=== PATIENT | male | born 1950 | race Caucasian/White ===

== ENCOUNTER 2020-11-08 12:51 | Outpatient (CLI) | payer MEDICARE, OTHER, SELFPAY ==
--- NOTE | 2020-11-08 13:03 | XR_ITS ---
WS: [id number] Chest 2 views, 11/08/2020 Clinical Data: COPD Comparison: PA and lateral chest, 01/12/2019. Findings: No nodules, masses or effusions are seen. The heart is normal. The pulmonary vascularity is not increased. No pneumonia or pneumothorax is seen. The diaphragms are flattened. The aortic arch a nd descending aorta show tortuosity. XR/XR chest 2V* [id number] Impression: Atherosclerosis and hyperinflation.
== END 2020-11-08 12:52 | disposition home or self-care (01) ==
PROVIDERS: PCP Family Medicine; Visit Provider Family Medicine
DX: J44.1 Chronic obstructive pulmonary disease with (acute) exacerbation (principal); I70.90 Unspecified atherosclerosis
CPT/HCPCS: 71046

== ENCOUNTER → 2022-12-09 10:28 | Outpatient (BNVA) | payer MEDICARE, OTHER, SELFPAY | PROVIDERS: PCP Family Medicine; Visit Provider Dermatology | DX: L72.0 Epidermal cyst (principal); R20.8 Other disturbances of skin sensation; R23.8 Other skin changes; L53.8 Other specified erythematous conditions | CPT/HCPCS: 11403; 12032 ==

== ENCOUNTER 2023-03-17 13:18 | Outpatient (CLI) | payer MEDICARE, SELFPAY ==
--- NOTE | 2023-03-17 13:24 | CT_ITS ---
WS: [id number] LDCT LUNG CANCER SCREENING HISTORY: HX OF TOBACCO USE TECHNIQUE: Axial imaging performed from the apices to 1 cm below the costophrenic angles. Coronal and sagittal reformats are submitted with axial MIP series. All CT scans at [facility] use at least one of these dose optimization techniques: automated exposure control; mA and/or kV adjustment per patient size (includes targeted exams where dose is matched to clinical indication); or iterativ e reconstruction. DLP: 58.81 mGy.cm DIvol: Mean CTDIvol: 1.00 (mGy) COMPARISON: None available. Diagnostic quality: Satisfactory Lungs: Mild pulmonary hyperexpansion. No pulmonary mass or nodule. No endobronchial lesions. No groun dglass opacification. Heart: Normal size heart with no pericardial effusion.. Mild coronary artery calcifications. Other findings: Moderate atherosclerosis aorta. No mediastinal or hilar adenopathy. No chest wall abn ormality.. Mild thickening of the LEFT adrenal gland. IMPRESSION: CT/CT lung screening [id number] LUNG-RADS: 1-Negative FOLLOW UP: 12 Month: Continue annual screening with LDCT OTHER FINDINGS (S MODIFIER): None.
== END 2023-03-17 13:19 | disposition home or self-care (01) ==
PROVIDERS: PCP Family Medicine; Visit Provider Electrodiagnostic Medicine
DX: Z12.2 Encounter for screening for malignant neoplasm of respiratory organs (principal); Z87.891 Personal history of nicotine dependence
CPT/HCPCS: 71271

== ENCOUNTER → 2023-12-28 13:30 | Outpatient (BNVA) | payer MEDICARE, SELFPAY | PROVIDERS: PCP Family Medicine; Visit Provider Nurse Practitioner Family | DX: L57.0 Actinic keratosis (principal); L82.0 Inflamed seborrheic keratosis; B07.8 Other viral warts; D22.62 Melanocytic nevi of left upper limb, including shoulder; L81.4 Other melanin hyperpigmentation | CPT/HCPCS: 17000; 17110; 99213 ==

== ENCOUNTER 2024-02-19 19:40 | Inpatient (IN) | payer MEDICARE, OTHER, SELFPAY ==
[2024-02-19] VITALS (12 sets, daily range): BP systolic 116–162; BP diastolic 66–94; PULSE 69–103; RESP 14–33; TEMP 36.8–37; O2SAT 93–97; BMI 22.9; BMI 23.7
--- NOTE | 2024-02-19 19:41 | ECG_ITS ---
[facility] Test Date: 2024-02-19 Pat Name: Saqib Mace Department: Room: Gender: Male Advanced Nursing Professor: : 1950 Requested By: Brayna Camacho Order Number: [id number] Mor MD: Chirag Jay M.D. Measurements Intervals [place] Rate: 63 P: 53 CT: 183 QRS: 77 QRSD: 109 T: 89 QT: 403 QTc: 416 Interpretive Statements SINUS RHYTHM WITH OCCASIONAL SUPRAVENTRICULAR PREMATURE COMPLEXES MARKED ST ELEVATION, CONSIDER INFERIOR INJURY [MARKED ST ELEVATION W/O NORMALLY INFLECTED T-WAVE IN II/aVF] ACUTE SD No previous ECG available for comparison Electronically Signed On 02-21-2024 00:05:43 CDT by Chirag Jay M.D. [email or web address]
--- NOTE | 2024-02-19 19:43 | XRR_ITS ---
PROCEDURE INFORMATION: Exam: XR Chest Exam date and time: 02/19/2024 7:51 PM Age: 73 years old Clinical indication: Angina pectoris; Patient HX: Chest pain; Stemi TECHNIQUE: Imaging protocol: Radiologic exam of the chest. Views: 1 view. COMPARISON: CT lung screening [id number] 03/17/2023 1:38 PM FINDINGS: Lungs: Unremarkable. No consolidation. Pleural spaces: Unremarkable. No pleural effusion. No pneumothorax. Heart/Mediastinum: Unremarkable. No cardiomegaly. Bones/joints: Unremarkable. XR/XR chest 1V portable [id number] IMPRESSION: No acute findings.
--- NOTE | 2024-02-19 19:53 | XACV_ITS ---
Exam Room: 2 Ht: 178 cm Wt: 73 kg BSA: 1.89 m2 Gender: Male : 1950 Exam Priority: Routine Procedure(s): Procedure Description: Diagnostic procedure Procedure Description: PCI procedure Procedure Description: Left Heart Catheterization Procedure Description: Left ventriculography Procedure Description: Drug Eluting Coronary Stent Procedure Description: PTCA Procedure Description: Miscellaneous Procedure Description: ACT Procedure Description: Coronary Angiography Diagnostic Cath Status: Emergency Diagnostic Findings * Left Main has no disease. * Circumflex has no disease. * Mid Left Anterior Descending: mild 40% stenosis, MARK: 3 flow. * Mid Right Coronary Artery: total occlusion, MARK: 0 flow. * Distal Right Coronary Artery to Right Posterior AV: total occlusion, MARK: 0 flow. * Coronary angiography shows right dominance. PCI Status: Emergency PCI Indication: STEMI - Immediate PCI for STEMI Interventional Findings * Mid Right Coronary Artery: 100% stenosis treated with a AB TREK 2.50X15 RX BALLOON, ISAK MANZANO EUPHORA RX 3.13O50BH BALLOON, and MDT R CINTHIA 3.0X15 MARIANNA. 0% residual stenosis, MARK: 3 flow. * Distal Right Coronary Artery to Right Posterior AV: 100% stenosis treated with a Drug Eluting Stent. 0% residual stenosis, MARK: 3 flow. Successful intervention. Conclusions 1. There is total occlusion coronary artery disease with two vessel disease. 2. Mid Right Coronary Artery was treated with a Balloon, Balloon, and Drug Eluting Stent. 3. Distal Right Coronary Artery to Right Posterior AV was treated with a Drug Eluting Stent. 4. 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 Further assessment with CTA with runoff and abdominal pelvis CTA recommended.. 5. Please note that it was a difficult access for anatomical challenges. Patient does not have good radial pulse were not able to cross with a wire into the brachial artery therefore we will switch patient to the right groin. After somewhat difficulty were able to go through the common femoral artery of the right side however our wire keep on hanging in the distal abdominal aorta and was not crossing it, gentle injection revealed patient has large right common iliac eccentric aneurysm, we therefore switched to right brachial artery as patient came in with ST elevation ND hypotensive requiring urgent care, therefore we cannulated right brachial artery successfully, coronary angiography/PCI was performed through right brachial artery. Please note that they lay him to go to balloon time the second 2 anatomically challenge and difficulty in access.. Recommendations * 1-Return to inpatient for close monitoring and routine cath care 2-Risk factor modification for secondary prevention 3-Statin and aspirin 81 mg life-long, if tolerated 4-Patient was pre-loaded with 600 mg of Plavix, continue Plavix 75mg p.o. daily for at least one year. We will assess at the end of one year again to continue if further or not 5-Continue optimal medical management 6-Follow up with Dr. Juarez in four weeks and your primary care in 10 days. Interventional RX Recommendation: PCI w/o planned CABG Diagnostic RX Recommendation: PCI w/o planned CABG Ventriculography Ejection Fraction: 45.0 % Pressures Phase:Rest AO : 138 / 88 ( 109 ) @ 5:04:03 PM 29 / 25 ( 27 ) @ 5:04:03 PM 136 / 113 ( 124 ) @ 5:04:03 PM 75 / 52 ( 62 ) @ 5:04:03 PM 95 / 61 ( 77 ) @ 5:04:03 PM 121 / 73 ( 95 ) @ 5:04:03 PM 122 / 73 ( 95 ) @ 5:04:03 PM LV : 128 / 2 / 24 @ 5:04:03 PM 127 / 13 / 31 @ 5:04:03 PM 126 / 12 / 30 @ 5:04:03 PM Valves Phase:DefaultPhase AV : 6.0 @ 10:04:03 PM AV Mean Gradient: 9.0 @ 10:04:03 PM Clinical Evaluation EBL: 5mL-10mL Procedural Details Pre-Procedure Time Out. Identified patient by full name and date of as verbalized by the patient/guarantor. Does the consent match the physician's order: N/A Emergent; Informed Consent not obtained due to time critical life threat. Accurate & Complete Informed Consent: N/A Emergent; Informed Consent not obtained due to time critical life threat. Inpatient/Outpatient History & Physical on Chart: N/A Emergent; Informed Consent not obtained due to time critical life threat. Visualize and Verify Site with Patient/Guarantor: N/A. Relevant Radiology Images available: N/A. The risks, benefits, and alternatives of sedation and/or procedure were discussed by physician. The patient agrees to continue. Procedure started. [facility] Clinical Fraility Score: 3: Managing Well. Early Learning Teacher Indications: ACS <= 24 hours. Chest Pain Symptom Assessment: Typical Angina Symptoms. Correct patient, site and procedure confirmed by cath team. Current diagnosis: STEMI. PERRLA. Strong, equal hand kettle room helper bilaterally. Lungs clear x 5 lobes. IV Site on Arrival: 20 gauge in the right forearm. IV Site on Arrival: 20 gauge in the left anticubital. IV Fluids: 0.9% NaCl at KVO. 0 mL infused prior to labor relations director. Oxygen started at 2liters/min via nasal canula. AP pads applied. right groin was prepped with chloroprep then draped in the usual sterile fashion. right radial was prepped with chloroprep then draped in the usual sterile fashion. Physician notified. Baseline sample Acquired. HR: 81 BPM. Physician arrived. Physician scrubbed in. Immediate Pre-Procedure Time Out. Correct Patient: Yes; Correct Procedure: Yes; Correct Site: Yes; Correct Patient Position: Yes; Correct Supplies: Yes; Dried Flammable Prep: Yes; Blood Products Available: No;. Lidocaine 1% infiltrated to the right radial. Admit Source: Emergency department. An attempt to gain access to the right radial artery was unsuccessful. Manual pressure was held as needed to stop the bleeding. Arterial access obtained. Physician unable to aspirate blood from radial sheath, radial procedure aborted. Lidocaine 1% infiltrated to the right groin. Arterial access obtained. ACT drawn. Results 185 seconds. Therapeutic limits - pre-heparin administration 90-150 seconds and monitoring heparin during a vascular procedure >250 seconds. 6 american JR 4 guide catheter was inserted over the wire. Add inventory: Co-airline transport pilot, endoflator. Unable to advance wire past iliac artery. Wire out. Hand injection through guide catheter. Glidewire in through guide catheter. Unable to advance wire due to difficult anatomy. Glidewire out. Guide catheter out. Lidocaine 1% infiltrated to the right radial. right brachial was prepped with chloroprep then draped in the usual sterile fashion. Baseline sample Acquired. HR: 86 BPM. Lidocaine 1% infiltrated to the right brachial. Arterial access obtained. 6 american JR 4 guide catheter was inserted over the wire. Wire out. ACT drawn. Results 203 seconds. Therapeutic limits - pre-heparin administration 90-150 seconds and monitoring heparin during a vascular procedure >250 seconds. View taken of RCA. Runthrough guidewire was advanced through the guide catheter to lesion in the distal RCA. Inflation number : 1 A AB TREK 2.50X15 RX BALLOON was prepped and advanced across the Dist RCA , then inflated to 14 TING for 0:07 seconds. Inflation number: 2 The AB TREK 2.50X15 RX BALLOON was reinflated across the Dist RCA, to 14 TING for 0:05 seconds. Inflation number: 3 The AB TREK 2.50X15 RX BALLOON was reinflated across the Dist RCA, to 12 TING for 0:06 seconds. Results checked. Inflation number: 4 The AB TREK 2.50X15 RX BALLOON was reinflated across the Dist RCA, to 12 TING for 0:05 seconds. Underlyng rhythm check. Temporary pacing stopped. Balloon out. Patient in vtach, 1 shock delivered at 120J. Stent inserted to lesion in the distal RCA. Inflation Number : 6 A ISAK Yañez CINTHIA 3.0X15 MARIANNA -Lot Number# [id number] EXP EXP 12-27-2025 was prepped and advanced across the Dist RCA. The stent was deployed at 12 TING for 0:07 seconds. Stent balloon out over wire. Results checked. Wire redirected to PLV. Inflation number : 1 A AB TREK 2.50X12 RX BALLOON was prepped and advanced across the 1st RPL , then inflated to 8 TING for 0:06 seconds. Inflation number: 2 The AB TREK 2.50X12 RX BALLOON was reinflated across the 1st RPL, to 8 TING for 0:06 seconds. Balloon out. Wire redirected to PDA. Balloon inserted to lesion in the distal RCA. Inflation number : 5 A MDT NC EUPHORA RX 3.13J57EF BALLOON was prepped and advanced across the Dist RCA , then inflated to 14 TING for 0:11 seconds. Balloon out. Results checked. Runthrough wire out. Guide catheter out. A 5 american JL3.5 catheter in over wire. Levophed gtt titrated to 10mcg/min by Esa Stringer RN. Levophed gtt titrated to 14mcg/min by Esa Stringer RN. Catheter removed over the standard wire. A 5 american JL4 catheter in over wire. ACT drawn. Results 276 seconds. Therapeutic limits - pre-heparin administration 90-150 seconds and monitoring heparin during a vascular procedure >250 seconds. Multiple views taken of left coronary artery. Catheter removed over the standard wire. A 5 american Angled Pig catheter in over wire. Advanced to LV. Wire out. EDP Sample taken: LV 128/2,24; HR: 89 BPM; SpO2: 94%. LV gram performed in [place] @ 10 mL/second for a total of 30 mL. Fluid bolus stopped. NS resumed at 200ml/hr by Esa Stringer RN per verbal orders Dr. Juarez. EDP Sample taken: LV 127/13,31; HR: 90 BPM; SpO2: 94%. Pullback taken: LV 126/12,30; AO 121/73(95); Mean: 9mmHg, Peak to Peak: 6mmHg, SEP: 12sec/min; HR: 90 BPM; SpO2: 94%. Pt bradycardic, required temporary transcutaneous pacing. MA 20 , rate 70. Catheter and wire out. Hand injection through Brachial sheath to assess radial artery. Post Procedure: Pulses reassessed and unchanged. PERRLA. Strong, equal hand kettle room helper bilaterally. No VTE prophylaxis required. Post-op diagnosis: Inferior Wall ND, status post PCI placement of 1 stent. Complications: None. Estimated blood loss: 5mL-10mL. Responsiveness - Normal response to verbal stimuli; alert and oriented, PERRLA. Airway - Unaffected, no intervention required; spontaneous ventilation. Circulation: W/N/L, pulses unchanged. Nausea/Vomiting: No. A Suture was successful obtaining hemostatsis at the Right Brachial artery insertion site. A Suture was successful obtaining hemostatsis at the Right Femoral artery insertion site. Sheath(s) sutured into position with 2-0 silk and sterile 4x4's and Op-site applied over the site. No oozing or signs and symptoms of hematoma noted. Sheath(s) sutured into position with 2-0 silk and sterile 4x4's and Op-site applied over the site. No oozing or signs and symptoms of hematoma noted. A suture was successful obtaining hemostatsis at the Right Radial artery insertion site. As per verbal orders of Dr. Juarez, radial sheath is to stay sutured in overnight without pressure bag. Instructions given to primary care nurse not pull . Dr. Juarez not to pull radial sheath in AM. Brachial and femoral Arterial sheaths flushed and connected to tranducer and pressure bag with heparinized saline. Total IV fluids: 550 mL. Medication's Wasted: Lidocaine 1% = 10 mL. Medication's Wasted: Heparin = 4000 unit. Medication's Wasted: Other = Fentanyl 75mcg. PCI Indication: STEMI. Procedure completed. Patient transferred by bed to ICU. Vital chart was stopped. Access Site Site: Right Radial artery Sheath Size: 6 Fr Hemostasis Success: Successful Site: Right Femoral artery Sheath Size: 6 Fr Hemostasis Method: Suture Hemostasis Success: Successful Site: Right Brachial artery Sheath Size: 6 Fr Hemostasis Method: Suture Hemostasis Success: Successful Procedure Medications Start: 8:28 PM Stop: 8:28 PM Medication: Versed Amount: 1 mg Route: I.V. Start: 8:28 PM Stop: 8:28 PM Medication: Fentanyl Amount: 50 mcg Route: I.V. Start: 8:31 PM Stop: 8:31 PM Medication: Versed Amount: 1 mg Route: I.V. Start: 8:37 PM Stop: 8:37 PM Medication: Fentanyl Amount: 25 mcg Route: I.V. Start: 8:43 PM Stop: 8:43 PM Medication: Versed Amount: 1 mg Route: I.V. Start: 8:50 PM Stop: 8:50 PM Medication: Fentanyl Amount: 25 mcg Route: I.V. Start: 8:51 PM Stop: 8:51 PM Medication: Zofran (ondansetron) Amount: 4 mg Route: I.V. Start: 9:02 PM Stop: 9:02 PM Medication: Epinephrine Amount: 1 mg Route: I.V. Start: 9:02 PM Stop: 9:02 PM Medication: 0.9% Saline Amount: 999 ml/hr Route: I.V. bolus Start: 8:58 PM Stop: 8:58 PM Medication: Heparin Amount: 5000 units Route: I.V. Start: 9:06 PM Stop: 9:06 PM Medication: Amiodarone (Cordarone) Amount: 150 mg Route: I.V. bolus Start: 9:07 PM Stop: 9:07 PM Medication: Adenosine (Adenocard) Amount: 6 mg Start: 9:09 PM Stop: 9:09 PM Medication: Versed Amount: 1 mg Route: I.V. Start: 9:15 PM Stop: 9:15 PM Medication: Levophed (norepinephrine) Amount: 8 mcg/min Route: I.V. drip Start: 9:26 PM Stop: 9:26 PM Medication: Heparin Amount: 3000 units Route: I.V. Start: 9:41 PM Stop: 9:41 PM Medication: Fentanyl Amount: 25 mcg Route: I.V. Start: 9:02 PM Stop: 9:02 PM Medication: Atropine Amount: 1 mg Route: I.V. I, the attending physician, have reviewed and verified all procedure medications. Yes, all medications given per verbal order Report Signatures Finalized by Tor Juarez MD on 03/16/2024 11:04 PM
--- NOTE | 2024-02-19 19:54 | W.ED.CHESTPA ---
HPI - Chest Pain General: Stated Complaint: chest pain Time Seen by Provider: 02/19/24 19:51 Source: patient Mode of arrival: ambulatory Limitations: no limitations History of Present Illness: 73-year-old male states he started having chest pain roughly 90 minutes ago. He states pain is a pressure type pain in the center of his chest he rates his pain an 8 out of 10 he has some dyspnea denies any fever denies any worsening improving factors he is a former smoker no history of heart disease. Associated symptoms: Deny abdominal pain, dyspnea, fever(s), nausea or vomiting Related Data Home Medications Medication Instructions Recorded Confirmed No Known Home Medications 02/20/21 10/28/21 Allergies Allergy/AdvReac Type Severity Reaction Status Date / Time tetanus and diphtheria Allergy almost Verified 10/28/21 08:50 toxoids Bee stings Allergy hives Uncoded 10/28/21 08:50 Review of Systems Const: Denies: fever(s), chills, body aches or change in appetite ENMT: Denies: throat pain or dental pain Card: Reports: chest pain Resp: Denies: dyspnea GI: Denies: abdominal pain, nausea, vomiting or diarrhea Musc: Denies: neck pain or back pain Skin/Breast: Denies: rash Neuro: Denies: headache(s) PFSH ED PFSH: Medical History History of nonmelanoma skin cancer Hernia History of chronic ear infection Surgical History History of knee joint replacement History of hernia repair History of tonsillectomy and adenoidectomy Social History Smoking and tobacco/nicotine status: never used tobacco/nicotine Physical Exam Const: COMMON NORMALS: patient oriented x3 GENERAL APPEARANCE: in distress and ill appearing HENMT: COMMON NORMALS: normocephalic and atraumatic HEAD & SCALP: normocephalic and atraumatic Eye: COMMON NORMALS: Equal, round and reactive pupils present and EOMs intact bilaterally PUPIL: Yes Equal, round and reactive pupils present Neck/C-Spine: COMMON NORMALS: full ROM and supple Chest: COMMONS NORMALS: normal inspection of the chest and normal palpation of entire chest wall Resp: COMMON NORMALS: normal respiratory effort, No retractions, No use of accessory muscles and clear to auscultation bilaterally AUSCULTATION: clear to auscultation bilaterally Cardio: COMMON NORMALS: regular rate, regular rhythm and No murmurs present (Cardio) RATE: regular rate RHYTHM: regular rhythm Extremity: COMMON NORMALS: normal to inspection and full ROM Neuro: COMMON NORMALS: patient oriented x3, moves all extremities and no focal motor deficits Psych: COMMON NORMALS: mental status grossly normal, Normal thought process present and cooperative THOUGHT PROCESS: Normal thought process present Skin: COMMON NORMALS: no rashes or lesions noted and no wounds GENERAL SKIN EXAM: no rashes or lesions noted MDM - Chest Pain Medical Decision Making Patient presents here with chest pain does have ST elevation in the inferior leads STEMI was alerted Medical Records I reviewed the patient's medical records. Lab Data I reviewed the patient's lab results. All radiology interpretation(s) finalized by discharge EKG Data EKG 1: I personally reviewed and interpreted this EKG as follows: EKG interpretation date: 02/19/24 EKG interpretation time: 19:41 Interpretation: nsr hr 63 st elevatin in II, III AVF Discharge Plan Discharge Patient Disposition: Admitted As Inpatient Clinical Impression: ST elevation (STEMI) myocardial infarction Condition: Stable Prescriptions: No Action No Known Home Medications Referrals: Doug Hidalgo MD [Primary Care Provider] - Coding Level of Care Code ED Special Education Preschool Teacher for Chg Frandy
[2024-02-19] MEDS: clopidogrel 300 mg Tablet 600 MG PO (19:55)
[2024-02-19] MEDS: heparin 5,000 unit/mL INJ 1 mL 4000 UNIT IVP (19:55)
[2024-02-19] MEDS: aspirin 325 mg Tablet PO (19:55)
[2024-02-19] MEDS: ondansetron 2 mg/ML SDV 2 mL 4 MG IVP (20:05)
[2024-02-19] MEDS: nitroglycerin 0.4 mg sublingual Tablet SUBLINGUAL (20:06)
[2024-02-19] MEDS: morphine 4 mg/mL SDV 1 mL IVP (20:12)
[2024-02-19 20:13] LABS: Basophils % 0.2 %; Eosinophils # 0.1 10^3/uL (0.0-0.8); Eosinophils % 0.8 %; Hematocrit 43.2 % (37-53); Lymphocytes # 1.7 10^3/uL (0.8-4.8); Lymphocytes % 11.1 %; Mean Corpuscular HGB Conc 31.9 g/dL (30-55); Mean Corpuscular Hemoglobin 29.4 pg (27-33); Mean Corpuscular Volume 91.9 fl (82-101); Mean Platelet Volume 11.6 fL (7.4-10.4); Monocytes # 1.3 10^3/uL (0.2-0.9); Monocytes % 8.2 %; Neutrophils # 12.24 10^3/uL (1.8-7.7); Neutrophils % 79.4 %; Nucleated Red Blood Cells % 0 %; Platelet Count 168 10^3/cmm (157-399); White Blood Count 15.41 10^3/uL (3.29-11.43)
--- NOTE | 2024-02-19 20:25 | P.HP_ITS ---
Providers/Chief Complaint 2 Admitting Physician: Tor Juarez MD Primary Care Provider: Doug Hidalgo MD Chief Complaint: chest pain History of Present Illness Saqib Mace is a 73 year old male past medical history significant for history of tobacco abuse quit few years ago and restarted in 1 week was [facility] when he started having chest pain 2 hours ago, chest pain became more intense therefore he decided to come to the ER. Twelve-lead EKG was suggestive of inferior ST elevation CA it is the reason STEMI pager was called. I immediately saw the patient in the ER and confirm the STEMI. Patient has been explained all risk-benefit and alternative for the procedure will proceed with urgent left heart cath/PCI if indicated. Patient has been loaded with Plavix aspirin and heparin. Medications/Allergies Home Medications Medication Instructions Recorded Confirmed Last Taken Type No Known Home Medications 02/20/21 10/28/21 Unknown History Allergies Allergy/AdvReac Type Severity Reaction Status Date / Time tetanus and diphtheria Allergy almost Verified 10/28/21 08:50 toxoids Bee stings Allergy hives Uncoded 10/28/21 08:50 PFSH Acute 2 PFSH: Medical History History of nonmelanoma skin cancer Hernia History of chronic ear infection Surgical History History of knee joint replacement History of hernia repair History of tonsillectomy and adenoidectomy Social History Smoking and tobacco/nicotine status: never used tobacco/nicotine Vitals/I&O/Wt Last Vital Signs Temp 98.6 F 02/19/24 19:45 Pulse 98 02/19/24 20:16 Resp 16 02/19/24 20:16 BP 162/82 02/19/24 20:16 Pulse Ox 94 02/19/24 20:16 O2 Del Method Room Air 02/19/24 20:16 Weight last 48 hrs Weight 160 lb Physical Exam 2 Const: OTHER: GENERAL: Patient is alert, awake and oriented x3. Moderate distress NECK: No jugular vein distension. HEENT: No cyanosis. No icterus. No pallor. HEART: Regular S1 and S2. No murmur, rub or gallop. LUNGS: Clear to auscultate bilaterally. ABDOMEN: Soft, nontender and nondistended. Positive bowel sounds. No guarding, rebound or tenderness. CENTRAL NERVOUS SYSTEM: Grossly nonfocal. EXTREMITIES: Lower extremities with out edema bilaterally. Data 02/19/24 20:00 02/19/24 20:00 A&P Assessment and plan (1) ST elevation (STEMI) myocardial infarction: Will proceed with urgent left heart cath/PCI if indicated, patient has been loaded with aspirin Plavix and heparin. Further plan will be advised as per progress of patient. (2) History of tobacco abuse: Advised quitting smoking. Attestations 2 Medical Necessity Statement*: I am expecting patient stay to cross more than 2 midnight. Coding Level of Care Code Acute Code for [facility] Diagnoses ST elevation (STEMI) myocardial infarction I21.3 History of tobacco abuse Z87.891
[2024-02-19 20:26] LABS: INR 0.94 (0.8-1.2)
[2024-02-19 20:34] LABS: Troponin(5th) Baseline 34 ng/L (0-15)
[2024-02-19 20:35] LABS: Alanine Aminotransferase 12 U/L (0-41); Albumin Level 4.5 g/dL (3.5-5.2); Alkaline Phosphatase 102 U/L (40-130); Blood Urea Nitrogen 19 mg/dL (8-23); Calcium 8.7 mg/dL (8.5-10.5); Carbon Dioxide 23 mmol/L (22-29); Chloride 103 mmol/L (98-107); Creatinine Clr Calc Pharmacy 69.7954; Globulin 2.4 g/dL (1.3-4.6); Glucose 139 mg/dL (65-115); Lipase 17 U/L (13-60); Osmolality Calculated 293 mOsm/kg (285-295); Sodium 139 mmol/L (136-145); Total Bilirubin 0.5 mg/dL (0.15-1.2); Total Protein 6.9 g/dL (6.6-8.7)
[2024-02-19 20:38] LABS: Anion Gap 17.3 (5-19); Aspartate Amino Transferase 23 U/L (0-40); Potassium 4.3 mmol/L (3.5-5.1)
[2024-02-19] MEDS: norepinephrine 4 MG/250 ML BAG 45 MG IV (22:12)
[2024-02-19 22:37] LABS: Troponin 5 2HR Delta 129.8 ABS# (0-10)
[2024-02-19 22:38] LABS: Troponin 5 2HR 163.8 ng/L (0-15)
[2024-02-19] MEDS: sodium chloride 0.9% 1,000 ML 100 ML IV (23:05)
[2024-02-19] MEDS: atorvastatin 40 mg Tablet 80 MG PO (23:20)
--- NOTE | 2024-02-19 23:52 | PC.NURSE ---
Instructed by Dr. Juarez to leave right radial catheter in place, it is sutured- non functioning. MD states will pull line in am himself. Leave as is and monitor for increased swelling.
[2024-02-20] VITALS (85 sets, daily range): BP systolic 85–135; BP diastolic 56–81; PULSE 53–80; RESP 12–28; TEMP 36.3–36.9; O2SAT 88–98
[2024-02-20 00:51] LABS: Basophils % 0.1 %; Hematocrit 36.9 % (37-53); Lymphocytes # 0.9 10^3/uL (0.8-4.8); Lymphocytes % 7.3 %; Mean Corpuscular HGB Conc 32.2 g/dL (30-55); Mean Corpuscular Hemoglobin 29.3 pg (27-33); Mean Corpuscular Volume 90.9 fl (82-101); Mean Platelet Volume 11.3 fL (7.4-10.4); Monocytes # 0.9 10^3/uL (0.2-0.9); Monocytes % 7.2 %; Neutrophils # 10.64 10^3/uL (1.8-7.7); Neutrophils % 85.2 %; Nucleated Red Blood Cells % 0 %; Platelet Count 148 10^3/cmm (157-399); Red Blood Count 4.06 10^6/uL (3.85-5.65); White Blood Count 12.49 10^3/uL (3.29-11.43)
[2024-02-20 01:21] LABS: Partial Thromboplastin Time 138.6 SECONDS (23.9-36.7)
[2024-02-20 01:26] LABS: Troponin 5 6HR 899.3 ng/L (0-15); Troponin 5 6HR Delta 865.3 ng/L (0-12)
[2024-02-20 02:03] LABS: Anion Gap 14.6 (5-19); Blood Urea Nitrogen 16 mg/dL (8-23); Calcium 7.8 mg/dL (8.5-10.5); Carbon Dioxide 21 mmol/L (22-29); Chloride 105 mmol/L (98-107); Creatinine Clr Calc Pharmacy 88.4063; Glucose 133 mg/dL (65-115); Osmolality Calculated 285 mOsm/kg (285-295); Potassium 4.6 mmol/L (3.5-5.1); Sodium 136 mmol/L (136-145)
--- NOTE | 2024-02-20 02:05 | ECG_ITS ---
[facility] Test Date: 2024-02-20 Pat Name: Saqib Mace Department: Room: [facility] Gender: Male Senior Engineering Tech: : 1950 Requested By: Shaquille Scherer Order Number: [id number] Reading MD: Chirag Jay M.D. Measurements Intervals [place] Rate: 69 P: 115 PA: 153 QRS: 180 QRSD: 101 T: 216 QT: 414 QTc: 445 Interpretive Statements SINUS RHYTHM WITH OCCASIONAL ECTOPIC PREMATURE COMPLEXES ARM LEADS REVERSED [INVERTED P AND QRS IN I] Compared to ECG 02/19/2024 19:41:28 ST (T wave) deviation no longer present Myocardial infarct finding no longer present Electronically Signed On 02-22-2024 00:49:35 CDT by Chirag Jay M.D. [id number]
[2024-02-20] MEDS: amiodarone 150 MG/100 ML PREMIX 400 MG IV (02:52)
[2024-02-20] MEDS: HYDROcodone-acetaminophen 5-325 mg Tablet 1 TAB PO ×2 (03:00→12:51)
[2024-02-20 05:34] LABS: Partial Thromboplastin Time 30.7 SECONDS (23.9-36.7)
[2024-02-20] MEDS: fentaNYL 50 mcg/mL INJ 2mL IVP (05:55)
--- NOTE | 2024-02-20 07:31 | PC.NURSE ---
Patient with [address], ordered per Dr. Juarez to leave right radial sheath sutured in place, as he will move in am. at 0600 right brachial sheath removed by Echo. Pressure held for [address] Juarez's verbal instructions. Hemostasis obtained at 0620 and dressing applied to site. No hematoma noted. This nurse removed right femoral sheath at 0603, hemostasis obtained at 0630. site wnl pulses palpable. dressing applied to site. Site clean and dry without hematoma. Patient instructed to continue to lie flat for [address] Rubio instructions.
--- NOTE | 2024-02-20 08:28 | PC.NURSE ---
Addendum entered by Ryan Nava RN 02/20/24 08:30: About an hour after the bladder scan, patient has urinated 325 mL. Nurse will continue to monitor. Original Note: Upon morning assessment, nurse palpated what feels to be a distended bladder while assessing the abdomen. Bladder scan shows 500mL retained. Nurse explained urinary retention to the patient and the possibility of a catheter upon Dr orders. Patient understands and will continue to try and urinate.
[2024-02-20] MEDS: clopidogrel 75 mg Tablet PO (09:17)
[2024-02-20] MEDS: aspirin 81 mg EC Tablet PO (09:17)
[2024-02-20] MEDS: fentaNYL 50 mcg/mL INJ 2mL 25 MCG IVP (13:34)
--- NOTE | 2024-02-20 15:23 | USCV_ITS ---
Saqib Mace Age: 73 Gender: M : 1950 Exam Date: 02/20/2024 18:59 Ordering Phys: Tor Juarez MD ([email or web address]) Technologist: Glenn El Exam Location: [facility] [place] Indication: post stemi BP: 105 / 70 HR: 63 Rhythm: Sinus Technical Quality: Adequate MEASUREMENTS (Male / Female) Normal Values 2D ECHO LV Diastolic Diameter PLAX 3.7 cm 4.2 - 5.9 / 3.9 - 5.3 cm IVS Diastolic Thickness 1.0 cm 0.6 - 1.0 / 0.6 - 0.9 cm IVS Systolic Thickness 1.4 cm LVPW Diastolic Thickness 1.6 cm 0.6 - 1.0 / 0.6 - 0.9 cm LVPW Systolic Thickness 1.4 cm LVOT Diameter 2.0 cm LV Ejection Fraction 2D Teich 70.3 % LV Ejection Fraction MOD 4C 42.6 % LV Ejection Fraction MOD 2C 40.4 % LV Ejection Fraction 2C AL 39.8 % LA Diameter 3.2 cm RA Systolic Volume 4C AL 38.6 ml RA Systolic Volume 4C MOD 38.7 ml LA Sys Volume AL 55.3 cm cubed LA Sys Volume Index AL 28.7 cm cubed/m squared Aorta at Sinotubular Diameter 2.6 cm IVC Diameter 2.6 cm M-MODE LA Ao Ratio MM 0.7 AV Cusp Separation MM 1.9 cm DOPPLER AV Peak Velocity 143.0 cm/s LVOT Peak Velocity 88.0 cm/s AV Area Cont Eq vti 3.1 cm squared AV Area Cont Eq pk 2.0 cm squared MV Peak Velocity 84.0 cm/s MV Area PHT 3.9 cm squared Mitral E to A Ratio 0.6 TV Peak Velocity 302.7 cm/s TR Peak Velocity 356.0 cm/s TR Peak Gradient 50.7 mmHg TR Mean Velocity 303.0 cm/s TR Mean Gradient 37.9 mmHg TR Velocity Time Integral 105.7 cm PV Peak Velocity 112.0 cm/s RV Ejection Time 0.3 s FINDINGS Left Ventricle Mildly increased left ventricular cavity size. Moderately decreased left ventricular systolic function. Left ventricular ejection fraction is estimated at 42 %. There appeared to be anterior and septal wall hypokinesis, there appeared to be inferior wall severe hypokinesis, in general there is global hypokinesis.Grade I/IV diastolic dysfunction (abnormal relaxation filling pattern), normal to mildly elevated filling pressures. Right Ventricle The right ventricle is normal in size and function. RVSP could not be calculated due to incomplete tricuspid regurgitation velocity profile. Right Atrium The right atrium is normal in size. Left Atrium The left atrium is normal in size. Mitral Valve Moderately thickened mitral valve. Moderate mitral annular calcification. No mitral valve stenosis. Trace mitral valve regurgitation. Aortic Valve Moderate aortic valve stenosis. Trace aortic valve regurgitation. No aortic valve stenosis. Tricuspid Valve Structurally normal tricuspid valve without significant stenosis or regurgitation. Pulmonary artery systolic pressure is normal. Pulmonic Valve Structurally normal pulmonic valve without significant stenosis. There is no pulmonic regurgitation. Pericardium Normal pericardium without effusion. Aorta Normal ascending aorta dimension. IVC The inferior vena cava appears normal. CONCLUSIONS Mildly increased left ventricular cavity size. Moderately decreased left ventricular systolic function. Left ventricular ejection fraction is estimated at 42 %. There appeared to be anterior and septal wall hypokinesis, there appeared to be inferior wall severe hypokinesis, in general there is global hypokinesis.Grade I/IV diastolic dysfunction (abnormal relaxation filling pattern), normal to mildly elevated filling pressures. Moderately thickened mitral valve. Moderate mitral annular calcification. No mitral valve stenosis. Trace mitral valve regurgitation. Moderate aortic valve stenosis. Trace aortic valve regurgitation. No aortic valve stenosis. There is no pericardial effusion. The right ventricle is normal in size and function. RVSP could not be calculated due to incomplete tricuspid regurgitation velocity profile. There is no pericardial effusion. Right atrial pressure is around 5 mm of mercury. Tor Juarez MD (Electronically Signed) Final Date: 21 February 2024 14:43 S
--- NOTE | 2024-02-20 15:24 | P.PN_ITS ---
Subjective 2 Subjective: Patient had multiple runs of ventricular tachycardia, he was started on amiodarone which was tapered off today. Levophed was turned off this morning Brachial left femoral sheath has been discontinued followed by bedrest Right radial sheath discontinued TR band was applied Denies any chest pain but complained of some shortness of breath, patient has COPD Vitals/I&O/Wt Last Vital Signs Temp 98.2 F 02/20/24 12:15 Pulse 73 02/20/24 14:42 Resp 17 02/20/24 14:42 BP 118/73 02/20/24 14:30 Pulse Ox 96 02/20/24 14:42 O2 Del Method Nasal Cannula 02/20/24 14:42 O2 Flow Rate 2 02/20/24 14:42 02/20/24 02/20/24 02/20/24 06:59 14:59 22:59 Intake Total 171.875 / 800.035 6820.681 / 1061.681 Output Total 325 / 325 Balance 171.875 / 196.625 736.681 / 736.681 Weight last 48 hrs Weight 165 lb 5.547 oz Weight 165 lb 5.547 oz Weight 160 lb Physical Exam 2 Const: OTHER: GENERAL: Patient is alert, awake and oriented x3. NECK: No jugular vein distension. LUNGS: Clear to auscultate bilaterally. ABDOMEN: Soft, nontender and nondistended. Positive bowel sounds. No guarding, rebound or tenderness. CENTRAL NERVOUS SYSTEM: Grossly nonfocal. EXTREMITIES: Lower extremities with out edema bilaterally. Mild bruising on the right wrist and brachial, no significant hematoma Data 02/20/24 00:46 02/20/24 00:46 A&P Assessment and plan (1) ST elevation (STEMI) myocardial infarction: Status post PCI to distal RCA stent was placed from distal RCA into PDA balloon angioplasty to jailed PLV, excellent angiographic result MARK-3 flow was achieved, RCA has proximal 50 to 60% stenosis thought to be not significant. No other major obstructive coronary artery disease including left main LAD and circumflex was noted, left ventriculography revealed ejection fraction normal 50-55% with elevated LVEDP into 24. Patient had episodes of ventricular tachycardia overnight, it was treated with IV amiodarone. This morning he is doing fine and stable I will stop amiodarone and switch him to metoprolol. Continue aspirin statin and Plavix. Will ask for echocardiogram. Once tolerate blood pressure mahan we will add TAZ inhibitor. Qualifiers: Involved coronary artery: right coronary artery Qualified Code(s): I 21.11 - ST elevation (STEMI) myocardial infarction involving right coronary artery (2) History of tobacco abuse: Advised quitting smoking patient has not given me any date. (3) Iliac artery aneurysm: During angiogram it was a difficult access through the radial artery multiple attempts were made, possible spasm tortuosity of the radial artery could be the reason, right groin approach was adopted but my wire was not going beyond distal aorta careful hand-injection noted large possible iliac aneurysm and distal abdominal aortic aneurysm therefore we switched from right common femoral to right brachial artery approach, ascending aorta also appeared to be a large and aneurysmal, we will therefore ask for CTA of ascending aorta as well as CTA of abdominal aorta with runoff into lower extremities for aneurysms. Further plan will be devised as per progress the patient. Continue aspirin and statin TAZ inhibitor will be introduced. (4) COPD (chronic obstructive pulmonary disease): Will use DuoNeb Q6 as needed. Patient has been advised to quit smoking Qualifiers: COPD type: emphysema Emphysema type: unspecified Qualified Code(s): J 43.9 - Emphysema, unspecified Attestations 2 Medical Necessity Statement*: Because of above defined treatment post STEMI, patient requires continuation hospitalization and 1 more day in the ICU. Coding Level of Care Code Acute Code for [facility] Fwd Diagnoses ST elevation myocardial infarction involving right coronary artery I21.11 Involved coronary artery: right coronary artery History of tobacco abuse Z87.891 Iliac artery aneurysm I72.3 Pulmonary emphysema, unspecified emphysema type J43.9 COPD type: emphysema Emphysema type: unspecified
[2024-02-20] MEDS: metoprolol succinate ER (24 HR) 25 mg Tablet 12.5 MG PO (16:11)
[2024-02-20] MEDS: ondansetron 2 mg/ML SDV 2 mL 4 MG IVP (17:27)
[2024-02-20] MEDS: atorvastatin 40 mg Tablet 80 MG PO (20:35)
[2024-02-20] MEDS: temazepam 15 mg Capsule PO (20:37)
[2024-02-21] VITALS (41 sets, daily range): BP systolic 100–136; BP diastolic 59–102; PULSE 57–81; RESP 13–23; TEMP 36.6–37.1; O2SAT 90–96; BMI 24.0
[2024-02-21] MEDS: amiodarone 150 MG/100 ML PREMIX 400 MG IV (02:23)
--- NOTE | 2024-02-21 02:56 | PC.NURSE ---
Frequent V.Tach: Multiple episodes of v.tach noted with increased frequency and duration @approximately 0200. No chest pain, vital signs stable. Striped placed in paper chart. Dr. Juarez called @0217. New order to restart amio drip w/ loading dose. See MAR for start times.
[2024-02-21 05:43] LABS: Basophils % 0.3 %; Eosinophils # 0.2 10^3/uL (0.0-0.8); Eosinophils % 1.9 %; Hematocrit 38.5 % (37-53); Lymphocytes # 2.1 10^3/uL (0.8-4.8); Lymphocytes % 26.9 %; Mean Corpuscular HGB Conc 31.2 g/dL (30-55); Mean Corpuscular Hemoglobin 29.6 pg (27-33); Mean Corpuscular Volume 94.8 fl (82-101); Monocytes # 1.2 10^3/uL (0.2-0.9); Monocytes % 14.6 %; Nucleated Red Blood Cells % 0 %; Platelet Count 170 10^3/cmm (157-399); Red Blood Count 4.06 10^6/uL (3.85-5.65); Red Cell Distribution Width 15.2 % (12.1-15.1); White Blood Count 7.85 10^3/uL (3.29-11.43)
[2024-02-21 06:02] LABS: Blood Urea Nitrogen 12 mg/dL (8-23); Carbon Dioxide 27 mmol/L (22-29); Chloride 102 mmol/L (98-107); Creatinine Clr Calc Pharmacy 88.4063; Glucose 95 mg/dL (65-115); Osmolality Calculated 282 mOsm/kg (285-295); Sodium 136 mmol/L (136-145)
--- NOTE | 2024-02-21 08:00 | CT_ITS ---
WS: [id number] CT ANGIOGRAPHY OF THE ABDOMINAL AORTA WITH RUNOFF TO THE ANKLES HISTORY: Aortic and iliac aneurysm identified TECHNIQUE: Arterial injection is performed during imaging to evaluate the aorta and runoff vessels to the ankles. MIP and volume rendering imaging has also been performed. All images are reviewed. All C T scans at [facility] use at least one of these dose optimization techniques: automated exposu re control; mA and/or kV adjustment per patient size (includes targeted exams where dose is matched t o clinical indication); or iterative reconstruction. Contrast: Omnipaque 350; 100 mL IV. DLP: 1426.14 mGy.cm COMPARISON: None available. Abdominal aorta: Ectatic tortuous, S-shaped abdominal aorta. Calcified plaque is diffuse. Beginning i n the infrarenal abdominal aorta is an aneurysm measuring 5.0 anterior-posterior by 4.9 transversely. Aneurysm extends over a length of 6.7 cm to the bifurcation. Asymmetric thrombus measures 9 mm along the LEFT lateral aorta but extends to the 12 and 6:00 positions also. There are a few small plaque u lcerations just above the beginning of the aneurysm. RIGHT common iliac artery: Proximal RIGHT common iliac artery aneurysm 3.4 x 3.1 cm. The remaining il iac artery on the RIGHT contains plaque but no occlusion. LEFT common iliac artery, atherosclerotic with no aneurysm. Small amount of plaque at the origin of the celiac axis. No stenosis. Normal flow in the SMA. Mild pl aque proximal renal arteries. No high-grade stenosis. RIGHT lower extremity arterial system: RIGHT femoral, deep profunda and SFA are patent with scattered atherosclerotic plaque. Increasing plaque through Sanju's canal but stenosis is not greater than 50 %. Normal caliber popliteal artery with no aneurysm. Tibial peroneal trunk is well opacified. Small c aliber peroneal artery with plaque. Proximal posterior tibial artery is also small caliber but is pat ent to the ankle. Anterior tibial artery is also patent. LEFT lower extremity arterial system: LEFT femoral artery, deep profunda and SFA are patent with mode rate scattered plaque. Increasing plaque through Sanju's canal with no occlusion. A small portion of the popliteal artery is obscured by artifact from the LEFT knee arthroplasty. The visualized poplite al artery is normal with no aneurysm. Anterior tibial artery contains scattered plaque. 50% stenosis proximal posterior tibial artery. Small caliber peroneal artery. Very limited runoff to the ankle via the anterior and peroneal arteries. The posterior tibial arteries is most robust to the foot. Negative liver and spleen. Vicarious excretion of contrast in the gallbladder from a prior contrast e xamination. The pancreatic duct is mildly dilated. There is no mass at the pancreatic head identified . Normal common bile duct. Mild thickening of the LEFT adrenal gland. Mild cortical atrophy of each k idney. Too small to characterize hypodensity RIGHT kidney. Stomach is markedly distended with fluid a nd air. No obstruction of the GI tract. Diffuse moderate constipation. Normal appendix. Moderate dive rticular disease with no acute diverticulitis. No ascites or adenopathy. Negative urinary bladder. Degenerative disease in the lumbar spine. CT/CT angio abd aorta runof [id number] IMPRESSION: 1. Infrarenal abdominal aortic aneurysm with asymmetric thrombus. Aneurysm cynthia sures 5.0 x 4.9 cm and extends over a length of 6.7 cm to the bifurcation. 2. RIGHT common iliac artery aneurysm 3.4 x 3.1 cm. 3. Scattered plaque in the superficial femoral arteries greatest towards Coretat r's canal with stenosis near 50% but not occluded. 4. LEFT knee arthroplasty partially obscures the popliteal artery. No aneurysm s identified in the popliteal arteries. 5. Proximal LEFT posterior tibial artery, 50% stenosis. 6. Small caliber LEFT peroneal artery. Limited runoff to the ankle via the LEF T anterior tibial and peroneal arteries. More robust posterior tibial artery to the foot. 7. RIGHT peroneal artery is small caliber to the ankle. More robust vascularit y involving the anterior tibial artery to the foot.
--- NOTE | 2024-02-21 08:00 | CT_ITS ---
WS: [id number] CTA THORACIC AORTA WITH AND WITHOUT CONTRAST HISTORY: Aortic aneurysm TECHNIQUE: CTA imaging of the thorax is performed with and without contrast. After noncontrast imagin g is performed, CT angiogram is performed during injection of Omnipaque 350; 100 mL IV.. Sagittal and coronal reconstructions, sagittal and coronal MIP imaging is submitted. All CT scans at [facility] use at least one of these dose optimization techniques: automated exposure control; mA and/or kV adjustment per patient size (includes targeted exams where dose is matched to clinical indication) ; or iterative reconstruction. DLP: 1426.14 mGy.cm COMPARISON: Screening chest CT 03/17/2023 Mildly ectatic atherosclerotic thoracic aorta. Maximum diameter of the ascending aorta is 3.9 cm. The re is scattered atherosclerotic plaque. Normal descending aorta at 2.5 cm. No dissection. No ulcerate d plaque. Great vessels arise normally from the aortic arch. Sinus of Valsalva normal at 3.7 cm. Norm al sinotubular junction at 3.6 cm. Normal size pulmonary artery with normal opacification. Lungs are clear. Mild hyperexpansion and emph ysema. There are few scattered pulmonary granulomata which are calcified. Mild dependent changes at t he lung bases. No mass or pulmonary nodule. More pronounced bronchial wall thickening and bronchiecta sis medial RIGHT lower lobe. This is new since 03/17/2023. Mild enlargement of the all 4 cardiac chambers. No pericardial or pleural effusions. No mediastinal o r hilar adenopathy. There are a few small reactive hilar lymph nodes. No destructive bone lesions. Tricuspid regurgitation into the hepatic veins. Very mild thickening of the LEFT adrenal gland. Pancr eatic duct is mildly dilated throughout its course. This will be further evaluated on the additional imaging performed. The entire pancreatic head is not included on this exam. Cortical cyst upper pole RIGHT kidney. CT/CT angio chest [id number] IMPRESSION: 1. Ectatic but not aneurysmal ascending thoracic aorta, maximum diameter 3.9 c m. 2. Mild atherosclerosis aorta. 3. Mild cardiomegaly involving all 4 chambers. 4. Mild tricuspid regurgitation into the hepatic veins. 5. New since 03/17/2023 is focal bronchial wall thickening and bronchiectasis in the medial RIGHT lower lobe.
[2024-02-21] MEDS: metoprolol succinate ER (24 HR) 25 mg Tablet 12.5 MG PO (08:17)
[2024-02-21] MEDS: aspirin 81 mg EC Tablet PO (08:17)
[2024-02-21] MEDS: clopidogrel 75 mg Tablet PO (08:17)
[2024-02-21] MEDS: iohexol 350 mg/mL 500 mL Btl (per mL) IV (10:04)
--- NOTE | 2024-02-21 10:06 | PC.SOCIAL ---
IMM Update Pg. 2 of IMM updated. Copy provided at bedside.
--- NOTE | 2024-02-21 10:28 | P.PN_ITS ---
Subjective 2 Subjective: Overall patient is doing well this morning. He is status post distal RCA balloon and stenting. Currently on aspirin and Plavix. Levophed drip is off and vital signs are stable. He denies any chest pain. He states he has some chest soreness. He is requiring oxygen at 1.5 L/min. No significant edema noted but he does have frequent expiratory wheezing throughout all lung knight. Patient is going for an echo today. He denies any significant shortness of breath at this time. Oxygen saturation 92% on 1.5 L/min nasal cannula. He has been having frequent 3 beat runs of V. tach. Currently on amiodarone drip at 0.5 mg/min. He denies any palpitations. Medications: Reviewed: Yes Vitals/I&O/Wt Last Vital Signs Temp 97.9 F 02/21/24 08:00 Pulse 69 02/21/24 09:30 Resp 18 02/21/24 09:30 BP 132/87 02/21/24 09:30 Pulse Ox 92 02/21/24 10:08 O2 Del Method Nasal Cannula 02/21/24 10:08 O2 Flow Rate 1.5 02/21/24 10:08 02/20/24 02/21/24 02/21/24 22:59 06:59 14:59 Intake Total 0 / 1061.681 100 / 1161.681 390.537 / 390.537 Output Total 375 / 700 375 / 1075 350 / 350 Balance -375 / 361.681 -275 / 86.681 40.537 / 40.537 Weight last 48 hrs Weight 168 lb Weight 165 lb 5.547 oz Weight 165 lb 5.547 oz Weight 160 lb Physical Exam 2 Narrative: General: No apparent distress, healthy appearing, well nourished HENMT: normoceophalic Neck: No carotid bruit bilaterally Muskuloskeletal: Full ROM Lymphatic: no lymphedema noted Respiratory: Normal respiratory effort, expiratory wheezing throughout all lung knight, no use of accessory muscles Cardio: No JVD, regular rate, regular rhythm, S1 S2 normal, no murmurs, peripheral pulses 2+ throughout Extremities: Full ROM, normal, normal capillary refill, no cyanosis or edema Neuro: Alert and oriented x4, no focal motor deficits Psych: Affect normal, denies suicidal ideation, mental status grossly normal Skin: Right femoral and right radial angiogram puncture site clean dry intact soft no evidence of hematoma or pseudoaneurysm present, 2+ femoral and radial pulses Data 02/21/24 04:58 02/21/24 04:58 A&P Assessment and plan (1) ST elevation (STEMI) myocardial infarction: Status post PCI to distal RCA stent was placed from distal RCA into PDA balloon angioplasty to jailed PLV, excellent angiographic result MARK-3 flow was achieved, RCA has proximal 50 to 60% stenosis thought to be not significant. No other major obstructive coronary artery disease including left main LAD and circumflex was noted, left ventriculography revealed ejection fraction normal 50-55% with elevated LVEDP into 24. Patient had episodes of 3 beat run of ventricular tachycardia. Currently on amiodarone drip. Echo is being done today. Qualifiers: Involved coronary artery: right coronary artery Qualified Code(s): I 21.11 - ST elevation (STEMI) myocardial infarction involving right coronary artery (2) History of tobacco abuse: Advised quitting smoking. States he quit before years ago and just recently smoked a few cigarettes. (3) Iliac artery aneurysm: During angiogram it was a difficult access through the radial artery multiple attempts were made, possible spasm tortuosity of the radial artery could be the reason, right groin approach was adopted but my wire was not going beyond distal aorta careful hand-injection noted large possible iliac aneurysm and distal abdominal aortic aneurysm therefore we switched from right common femoral to right brachial artery approach, ascending aorta also appeared to be a large and aneurysmal, we will therefore ask for CTA of ascending aorta as well as CTA of abdominal aorta with runoff into lower extremities for aneurysms. Further plan will be devised as per progress the patient. Continue aspirin and statin TAZ inhibitor will be introduced. (4) COPD (chronic obstructive pulmonary disease): Will use DuoNeb Q6 as needed. Patient has been advised to quit smoking Qualifiers: COPD type: emphysema Emphysema type: unspecified Qualified Code(s): J 43.9 - Emphysema, unspecified Coding Level of Care Code Acute Code for [facility] Diagnoses ST elevation myocardial infarction involving right coronary artery I21.11 Involved coronary artery: right coronary artery History of tobacco abuse Z87.891 Iliac artery aneurysm I72.3 Pulmonary emphysema, unspecified emphysema type J43.9 COPD type: emphysema Emphysema type: unspecified
--- NOTE | 2024-02-21 10:54 | P.PN_ITS ---
Subjective 2 Subjective: Overall patient is doing well this morning. He is status post distal RCA balloon and stenting. Currently on aspirin and Plavix. Levophed drip is off and vital signs are stable. He denies any chest pain. He states he has some chest soreness. He is requiring oxygen at 1.5 L/min. No significant edema noted but he does have frequent expiratory wheezing throughout all lung knight. Patient is going for an echo today. He denies any significant shortness of breath at this time. Oxygen saturation 92% on 1.5 L/min nasal cannula. He has been having frequent 3 beat runs of V. tach. Currently on amiodarone drip at 0.5 mg/min. He denies any palpitations Medications: Reviewed: Yes Vitals/I&O/Wt Last Vital Signs Temp 97.9 F 02/21/24 08:00 Pulse 69 02/21/24 09:30 Resp 18 02/21/24 09:30 BP 132/87 02/21/24 09:30 Pulse Ox 92 02/21/24 10:08 O2 Del Method Nasal Cannula 02/21/24 10:08 O2 Flow Rate 1.5 02/21/24 10:08 02/20/24 02/21/24 02/21/24 22:59 06:59 14:59 Intake Total 0 / 1061.681 100 / 1161.681 390.537 / 390.537 Output Total 375 / 700 375 / 1075 350 / 350 Balance -375 / 361.681 -275 / 86.681 40.537 / 40.537 Weight last 48 hrs Weight 168 lb Weight 165 lb 5.547 oz Weight 165 lb 5.547 oz Weight 160 lb Physical Exam 2 Narrative: General: No apparent distress, healthy appearing, well nourished HENMT: normoceophalic Neck: No carotid bruit bilaterally Muskuloskeletal: Full ROM Lymphatic: no lymphedema noted Respiratory: Normal respiratory effort, expiratory wheezing throughout all lung knight, no use of accessory muscles Cardio: No JVD, regular rate, regular rhythm, S1 S2 normal, no murmurs, peripheral pulses 2+ throughout Extremities: Full ROM, normal, normal capillary refill, no cyanosis or edema Neuro: Alert and oriented x4, no focal motor deficits Psych: Affect normal, denies suicidal ideation, mental status grossly normal Skin: Right femoral and right radial angiogram puncture site clean dry intact soft no evidence of hematoma or pseudoaneurysm present, 2+ femoral and radial pulses Data 02/21/24 04:58 02/21/24 04:58 A&P Assessment and plan (1) ST elevation (STEMI) myocardial infarction: Status post PCI to distal RCA stent was placed from distal RCA into PDA balloon angioplasty to jailed PLV, excellent angiographic result MARK-3 flow was achieved, RCA has proximal 50 to 60% stenosis thought to be not significant. No other major obstructive coronary artery disease including left main LAD and circumflex was noted, left ventriculography revealed ejection fraction normal 50-55% with elevated LVEDP into . Patient had episodes of ventricular tachycardia overnight, it was treated with IV amiodarone. This morning he is doing fine and stable I will stop amiodarone and switch him to metoprolol. Continue aspirin statin and Plavix. Patient is going for echo today. Once tolerate blood pressure mahan we will add TAZ inhibitor. Qualifiers: Involved coronary artery: right coronary artery Qualified Code(s): I 21.11 - ST elevation (STEMI) myocardial infarction involving right coronary artery (2) History of tobacco abuse: Patient states he quit smoking many years ago, but recently smoked about 3 cigarettes. He will avoid these in the future. (3) Iliac artery aneurysm: Abdominal aortic and right iliac aneurysm noted on the CTA, infrarenal abdominal aortic N aneurysm measures 4.9 cm?, continue aspirin and statin good blood pressure control will refer patient to vascular surgery as an outpatient advised quitting smoking (4) COPD (chronic obstructive pulmonary disease): Patient may need Xopenex due to arrhythmias we will discontinue DuoNeb and consult hospitalist for COPD management. Patient has been advised to quit smoking Qualifiers: COPD type: emphysema Emphysema type: unspecified Qualified Code(s): J 43.9 - Emphysema, unspecified (5) V-tach: Patient has received amnio bolus with drip most likely coming from RCA ischemic scarring territory. Will transition patient from IV to oral amiodarone 400 mg daily. May will also monitor at the time of discharge (6) Abdominal aortic aneurysm: Patient has infrarenal abdominal aneurysm extending to the right iliac, abdominal aortic aneurysm at its widest diameter was 4.9 cm2, will refer patient to vascular surgery as an outpatient. Continue aspirin statin and good blood pressure control, advised quitting smoking Qualifiers: Abdominal aorta location: infrarenal aorta Presence of rupture: without rupture Qualified Code(s): I71.43 - Infrarenal abdominal aortic aneurysm, without rupture (7) LV dysfunction: Patient has moderately depressed left ventricular ejection fraction continue aspirin statin add TAZ inhibitor. Once blood pressure improves Plan Patient may be transferred to cardiac stepdown. D/C levophed, amio drip, start amiodarone 400 mg daily Attestations 2 Medical Necessity Statement*: Because of above defined treatment post STEMI, patient requires continuation hospitalization. Coding Level of Care Code Acute Code for [facility] Diagnoses ST elevation myocardial infarction involving right coronary artery I21.11 Involved coronary artery: right coronary artery History of tobacco abuse Z87.891 Iliac artery aneurysm I72.3 Pulmonary emphysema, unspecified emphysema type J43.9 COPD type: emphysema Emphysema type: unspecified V-tach I47.20 Infrarenal abdominal aortic aneurysm (AAA) without rupture I71.43 Abdominal aorta location: infrarenal aorta Presence of rupture: without rupture LV dysfunction I51.9
[2024-02-21] MEDS: amiodarone 200 mg Tablet 400 MG PO (12:34)
[2024-02-21] MEDS: ondansetron 2 mg/ML SDV 2 mL 4 MG IVP (16:06)
--- NOTE | 2024-02-21 18:01 | P.CONIM_ITS ---
Providers/Reason For Consult 2 Consulting Physician/Specialty*: Deb Key MD/ Hospitalist Reason for Consult*: COPD/bronchitis/ v tach Requesting Physician: Tor Diggs MD Attending Physician: Shaquille Scherer MD Primary Care Provider: Doug Hidalgo MD History of Present Illness History of Present Illness Saqib Mace is a 73 year old male who is currently admitted to the hospital since February 19, 2024 after presenting with a STEMI. He is status post PCI to distal RCA, stent placed from distal RCA into PDA. Hospital course has been complicated by development of ventricular tachycardia for which she was on IV amiodarone, now transition to oral amiodarone. Medicine team is consulted for management of COPD. Patient states that he has been diagnosed with multiple episodes of pneumonias and bronchitis ever since he was a child. 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 He has had multiple bilateral pneumonias. He last had a pulmonary function test at the age of 22. He does not carry a formal diagnosis of COPD. He does note that whenever there is a high pollen count or he handles a lot of hay his symptoms get worse. His sinuses fill up, there is constant discharge, he describes postnasal drip. He has a chronic cough and at the times when his symptoms are worse he experiences increased expectoration. He states currently his symptoms are worse over the past 2 weeks, he thinks that working outdoors seems to have set it off. He has a cough which is productive of phlegm. He has a sputum cup next to him which has greenish dense mucoid expectoration. He denies any fever. CT of the chest was performed today to evaluate for aortic aneurysm, his lungs did not show any evidence of pneumonia. There was noted to be mild hyperexpansion and emphysema. There was pronounced bronchial wall thickening and bronchiectasis of the right medial lower lobe, which appears to be new compared to February 2023. Patient was recently trialed on breztri inhaler which helped him tremendously, however it cost over $500 and therefore he was unable to afford further refills. He does use intermittent albuterol inhalation at home via nebulizer. He states he has been using it pretty consistently over the past 2 weeks but does not appear to have had a relief in symptoms. He states that he feels like his heart races afterwards. There was a question today if his V. tach may be precipitated by DuoNeb as needed that is currently ordered. In reviewing his chart patient has not yet received a DuoNeb inhalation during the course of his admission thus far. Therefore it is unlikely to be related to his V. tach. He denies any fever or chills. He is currently on 1.5 L/min supplemental O2, previously has never needed any oxygen, however has not been evaluated for the same either. Review of Systems 2 General: Reports: 10 or more systems reviewed and unremarkable except in HPI and below Const: Denies: fever(s), chills or body aches Eyes: Denies: change in vision, blurry vision or photophobia ENMT: Reports: hoarseness; Denies: throat pain, enlarged tonsils, odynophagia or nasal congestion Card: Denies: chest pain, palpitations, irregular heart rhythm, edema, swelling of feet/ankles, lightheadedness, pre-syncope, dyspnea on exertion or orthopnea Resp: Denies: dyspnea, productive cough, non-productive cough, wheezing, stridor, pain on inspiration, change in phlegm color, hemoptysis or chest congestion GI: Denies: abdominal pain, nausea, vomiting, hematemesis, coffee ground emesis, dysphagia, heartburn, diarrhea, constipation, GI cramping, change in stool character, hematochezia or melena : Denies: flank pain, dysuria, urinary frequency, urinary urgency, urinary hesitancy or hematuria Musc: Denies: neck pain, back pain, extremity pain, joint swelling, joint warmth or deformity Neuro: Denies: headache(s), numbness in extremities, weakness in extremities, sensory changes, difficulty walking, frequent falls, dizziness, vertigo, behavioral changes, Slurred speech present or seizure-like activity Psych: Denies: anxiety, depression, suicidal ideation or homicidal ideation Endo: Denies: polyuria, polydipsia, tired all the time, cold intolerance or hot flashes James/Lymph: Denies: easy bruising or easy bleeding Medications/Allergies Home Medications Medication Instructions Recorded Confirmed Last Taken Type No Known Home Medications 02/20/21 02/20/24 Unknown History Allergies Allergy/AdvReac Type Severity Reaction Status Date / Time tetanus and diphtheria Allergy almost Verified 10/28/21 08:50 toxoids Bee stings Allergy hives Uncoded 10/28/21 08:50 Current Medications Generic Name Dose Route Start Last Admin Trade Name Gonzalo PRN Reason Stop Dose Admin Hydrocodone Bitart/Acetaminophen 1 tab 02/19/24 21:47 02/20/24 12:51 Hydrocodone-Acetaminophen 5-325 Mg Tablet PO 1 tab Q4H PRN Administration MODERATE TO SEVERE PAIN Amiodarone HCl 400 mg 02/21/24 12:04 02/21/24 12:34 Amiodarone 200 Mg Tablet PO 400 mg DAILY KERON Administration Aspirin 81 mg 02/20/24 09:00 02/21/24 08:17 Aspirin 81 Mg Ec Tablet PO 81 mg DAILY KERON Administration Atorvastatin Calcium 80 mg 02/19/24 22:00 02/20/24 20:35 Atorvastatin 40 Mg Tablet PO 80 mg BEDTIME KERON Administration Clopidogrel Bisulfate 75 mg 02/20/24 09:00 02/21/24 08:17 Clopidogrel 75 Mg Tablet PO 75 mg DAILY KERON Administration Metoprolol Succinate 12.5 mg 02/20/24 15:25 02/21/24 08:17 Metoprolol Succinate Er (24 Hr) 25 Mg Tablet PO 12.5 mg DAILY KERON Administration Ondansetron HCl 4 mg 02/20/24 17:06 02/21/24 16:06 Ondansetron 2 Mg/Ml Sdv 2 Ml IVP 4 mg Q6H PRN Administration NAUSEA AND VOMITING Temazepam 15 mg 02/19/24 21:47 02/20/24 20:37 Temazepam 15 Mg Capsule PO 15 mg BEDTIME PRN Administration INSOMNIA PFSH Acute 2 PFSH: Medical History COPD (chronic obstructive pulmonary disease) History of nonmelanoma skin cancer Hernia History of chronic ear infection Surgical History History of knee joint replacement History of hernia repair History of tonsillectomy and adenoidectomy Social History Smoking and tobacco/nicotine status: never used tobacco/nicotine Vitals/I&O/Wt Last Vital Signs Temp 97.9 F 02/21/24 12:00 Pulse 63 02/21/24 15:06 Resp 23 H 02/21/24 14:30 BP 111/78 02/21/24 14:30 Pulse Ox 96 02/21/24 14:30 O2 Del Method Nasal Cannula 02/21/24 14:30 O2 Flow Rate 1.5 02/21/24 14:00 02/21/24 02/21/24 02/21/24 06:59 14:59 22:59 Intake Total 100 / 1161.681 626.388 / 626.388 200 / 826.388 Output Total 375 / 1075 350 / 350 550 / 900 Balance -275 / 86.681 276.388 / 276.388 -350 / -73.612 Weight last 48 hrs Weight 76.204 kg Weight 75 kg Weight 75 kg Weight 72.575 kg Physical Exam 2 Narrative: General: No acute distress, AO x3 HEENT: PERRLA, pupils bilaterally equal and reactive, pallors not present Chest: Wheezing to auscultation bilaterally. Left worse than right at rest. He does have a more prolonged expiratory phase with pronounced expiratory wheezing. Posttussive wheeze also noted on the right lung. CVS: S1-S2 regular, no murmurs, no tachycardia, no gallops, no rubs Abdomen: Soft, nontender, no organomegaly, bowel sounds present Neuro: No focal deficits, no facial deformity, AO x3, power 5/5 in all limbs Data 02/21/24 04:58 02/21/24 04:58 A&P Assessment and plan (1) Acute bronchitis: Acute on chronic bronchitis per patient description. Audible wheezing on exam today, made worse in the posttussive phase. He has increased secretions, increased expectoration, expectorating green mucoid sputum. Patient may have underlying COPD, however this has never been formally diagnosed. Trial of albuterol and Breztri inhaler have resulted in significant improvement in the past therefore suspect he may have underlying COPD. Would recommend pulmonary function testing as outpatient for formal diagnosis. For the management of acute bronchitis currently, recommend to start DuoNeb inhalation every 6 hours scheduled, budesonide 0.5 mg twice daily and elation. Discussed with patient the risk of tachycardia, if this does happen will likely switch to Xopenex, ipratropium and budesonide inhalation. Patient is currently in a monitored setting and will be continued on telemetry. Additionally add Flonase nasal spray for constant postnasal drip. Start oral Augmentin 875 mg p.o. twice daily. Check sputum culture and Gram stain. (2) Bronchiectasis: Likely as a result of recurrent bouts of bronchitis. (3) ST elevation (STEMI) myocardial infarction: management per cardiology Qualifiers: Involved coronary artery: right coronary artery Qualified Code(s): I 21.11 - ST elevation (STEMI) myocardial infarction involving right coronary artery (4) V-tach: unrelated to albuterol as he does not appear to have had any treatments yet management per cardiology Consult Attestations 2 Medical Necessity Statement: per admitting Coding Level of Care Code Acute Code for Chg Fwd High MDM includes number and complexity of problems actively addressed during encounter, amount and/or complexity of data reviewed/ordered and described risk of complication, morbidity or mortality of management as documented Diagnoses Acute bronchitis J20.[address] elevation myocardial infarction involving right coronary artery I21.11 Involved coronary artery: right coronary artery V-tach I47.20
[2024-02-21] MEDS: amoxicillin-clav 875-125 mg Tablet 1 TAB PO (18:26)
--- NOTE | 2024-02-21 19:54 | PC.NURSE ---
Transfer to CSU: Patient was transferred to CSU unit, receiving nurse at bedside, all patient belongings with patient.
[2024-02-21] MEDS: atorvastatin 40 mg Tablet 80 MG PO (21:03)
[2024-02-21] MEDS: ipratropium-albuterol 3 mL Neb INHALATION (21:47)
[2024-02-21] MEDS: budesonide 0.5 mg/2 mL Neb INHALATION (21:47)
[2024-02-22] VITALS (9 sets, daily range): BP systolic 90–111; BP diastolic 60–75; PULSE 68–95; RESP 14–25; TEMP 36.6–36.9; O2SAT 93–97
[2024-02-22] MEDS: ipratropium-albuterol 3 mL Neb INHALATION ×2 (02:43→07:27)
[2024-02-22] MEDS: budesonide 0.5 mg/2 mL Neb INHALATION (07:27)
[2024-02-22] MEDS: amoxicillin-clav 875-125 mg Tablet 1 TAB PO (08:19)
[2024-02-22] MEDS: amiodarone 200 mg Tablet 400 MG PO (08:20)
[2024-02-22] MEDS: metoprolol succinate ER (24 HR) 25 mg Tablet 12.5 MG PO (08:22)
[2024-02-22] MEDS: clopidogrel 75 mg Tablet PO (08:22)
[2024-02-22] MEDS: aspirin 81 mg EC Tablet PO (08:22)
[2024-02-22] MEDS: fluticasone nasal spray 16gm Btl 1 SPRAY NASAL (08:30)
--- NOTE | 2024-02-22 11:12 | P.DS_ITS ---
Discharge Providers Date of Admission: 02/19/24 22:16 Date of Discharge: February 22, 2024 Attending Provider at Admission: Tor Juarez MD Attending Provider at Discharge: Shaquille Scherer MD Primary Care Provider: Doug Hidalgo MD Diagnoses at Discharge Discharge Diagnosis (1) ST elevation (STEMI) myocardial infarction: Status: Acute Qualifiers: Involved coronary artery: right coronary artery Qualified Code(s): I21.11 - ST elevation (STEMI) myocardial infarction involving right coronary artery (2) History of tobacco abuse: Status: Acute (3) Iliac artery aneurysm: Status: Acute (4) COPD (chronic obstructive pulmonary disease): Status: Acute Qualifiers: COPD type: emphysema Emphysema type: unspecified Qualified Code(s): J43.9 - Emphysema, unspecified (5) V-tach: Status: Acute (6) Abdominal aortic aneurysm: Status: Acute Qualifiers: Abdominal aorta location: infrarenal aorta Presence of rupture: without rupture Qualified Code(s): I71.43 - Infrarenal abdominal aortic aneurysm, without rupture (7) LV dysfunction: Status: Acute (8) Acute bronchitis: Status: Acute (9) Bronchiectasis: Status: Acute Reason for Visit Reason for Visit: chest pain Hospital Course Hospital Course 73-year-old male past medical history significant for continues tobacco abuse COPD chronic bronchitis presented with chest pain noted to have ST elevation in the inferior wall he was taken to [facility]. Patient was a difficult access because of his severe radial artery spasm, tortuosity and large iliac and ab dominal aneurysm, brachial access was adopted patient was treated with single drug-eluting stent to distal RCA which was 100% occluded. Over next 3 days patient medicines were optimized he was noted to have short runs of ventricular tachycardia requiring IV amiodarone he is not switched to p.o. amiodarone, CTA of ascending and abdominal aorta with runoff confirmed abdominal aortic infrarenal aneurysm of 4.9 cm? with right iliac aneurysms, no ascending aortic aneurysm was noted. Echocardiogram confirmed moderately depressed left ventricular ejection fraction 45%. Patient also has 50 to 60% proximal RCA stenosis which was thought not to be significant. Today he is walking around without any difficulty after getting nebs treatment and antibiotic for the bronchitis he feeling much better. He will be discharged home, he will be scheduled to see cardiology nurse practitioner Dr. Juarez in the clinic, he will be referred to vascular surgery for abdominal aneurysm repair. He is advised to follow-up with primary care physician for COPD. Advised to quit smoking. Physical Exam Const: OTHER: GENERAL: Patient is alert, awake and oriented x3. NECK: No jugular vein distension. HEENT: No cyanosis. No icterus. No pallor. HEART: Regular S1 and S2. No murmur, rub or gallop. LUNGS: Clear to auscultate bilaterally. ABDOMEN: Soft, nontender and nondistended. Positive bowel sounds. No guarding, rebound or tenderness. CENTRAL NERVOUS SYSTEM: Grossly nonfocal. EXTREMITIES: Lower extremities with out edema bilaterally. Discharge Data Studies Completed and Pending Completed Studies During Hospitalization Category Date Time Status CT angio abd aorta runof 44684 Routine Cat Scan 02/21/24 08:[address] angio chest [id number] Routine Cat Scan 02/21/24 08:00 Completed XR chest 1V portable [id number] Stat Exams 02/19/24 19:43 Completed CV. 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 Aorta w/Runoff CTA 02/21/24 08:00 IMPRESSION: 1. Infrarenal abdominal aortic aneurysm with asymmetric thrombus. Aneurysm measures 5.0 x 4.9 cm and extends over a length of 6.7 cm to the bifurcation. 2. RIGHT common iliac artery aneurysm 3.4 x 3.1 cm. 3. Scattered plaque in the superficial femoral arteries greatest towards Sanju's canal with stenosis near 50% but not occluded. 4. LEFT knee arthroplasty partially obscures the popliteal artery. No aneurysms identified in the popliteal arteries. 5. Proximal LEFT posterior tibial artery, 50% stenosis. 6. Small caliber LEFT peroneal artery. Limited runoff to the ankle via the LEFT anterior tibial and peroneal arteries. More robust posterior tibial artery to the foot. 7. RIGHT peroneal artery is small caliber to the ankle. More robust vascularity involving the anterior tibial artery to the foot. Chest CTA 02/21/24 08:00 IMPRESSION: 1. Ectatic but not aneurysmal ascending thoracic aorta, maximum diameter 3.9 cm. 2. Mild atherosclerosis aorta. 3. Mild cardiomegaly involving all 4 chambers. 4. Mild tricuspid regurgitation into the hepatic veins. 5. New since 03/17/2023 is focal bronchial wall thickening and bronchiectasis in the medial RIGHT lower lobe. Laboratory Results WBC 7.85 10^3/uL (3.29-11.43) 02/21/24 04:58 RBC 4.06 10^6/uL (3.85-5.65) 02/21/24 04:58 Hgb 12.00 g/dL (11.27-16.99) 02/21/24 04:58 Hct 38.5 % (37-53) 02/21/24 04:58 MCV 94.8 fl (82-101) 02/21/24 04:58 MCH 29.6 pg (27-33) 02/21/24 04:58 MCHC 31.2 g/dL (30-55) 02/21/24 04:58 RDW 15.2 % (12.1-15.1) H 02/21/24 04:58 Plt Count 170 10^3/cmm (157-399) 02/21/24 04:58 MPV 12.0 fL (7.4-10.4) H 02/21/24 04:58 Neut % (Auto) 56.0 % 02/21/24 04:58 Lymph % (Auto) 26.9 % 02/21/24 04:58 [place] % (Auto) 14.6 % 02/21/24 04:58 Eos % (Auto) 1.9 % 02/21/24 04:58 Baso % (Auto) 0.3 % 02/21/24 04:58 Neut # (Auto) 4.40 10^3/uL (1.8-7.7) 02/21/24 04:58 Lymph # (Auto) 2.1 10^3/uL (0.8-4.8) 02/21/24 04:58 [place] # (Auto) 1.2 10^3/uL (0.2-0.9) H 02/21/24 04:58 Eos # (Auto) 0.2 10^3/uL (0.0-0.8) 02/21/24 04:58 Baso # (Auto) 0.0 10^3/uL (0.0-0.1) 02/21/24 04:58 Nucleated RBC % (auto) 0 % 02/21/24 04:58 Nucleated RBCs # 0.0 /100WBC 02/21/24 04:58 PT 12.90 SECONDS (12.1-14.9) 02/19/24 20:00 INR 0.94 (0.8-1.2) 02/19/24 20:00 APTT 30.7 SECONDS (23.9-36.7) 02/20/24 04:39 Sodium 136 mmol/L (136-145) 02/21/24 04:58 Potassium 4.0 mmol/L (3.5-5.1) 02/21/24 04:58 Chloride 102 mmol/L (98-107) 02/21/24 04:58 Carbon Dioxide 27 mmol/L (22-29) 02/21/24 04:58 Anion Gap 11.0 (5-19) 02/21/24 04:58 BUN 12 mg/dL (8-23) 02/21/24 04:58 Creatinine 0.7 mg/dL (0.7-1.2) 02/21/24 04:58 GFR Calculation Not Reportable 02/21/24 04:58 Glucose 95 mg/dL (65-115) 02/21/24 04:58 Calculated Osmolality 282 mOsm/kg (285-295) L 02/21/24 04:58 Calcium 8.0 mg/dL (8.5-10.5) L 02/21/24 04:58 Total Bilirubin 0.5 mg/dL (0.15-1.2) 02/19/24 20:00 AST 23 U/L (0-40) 02/19/24 20:00 ALT 12 U/L (0-41) 02/19/24 20:00 Alkaline Phosphatase 102 U/L (40-130) 02/19/24 20:00 Troponin T Baseline 34 ng/L (0-15) H 02/19/24 20:00 Troponin T 120 Minute 163.8 ng/L (0-15) H 02/19/24 21:54 Delta Troponin T 129.8 ABS# (0-10) H* 02/19/24 21:54 Troponin T Hi Sens 6Hr 899.3 ng/L (0-15) H 02/20/24 00:46 Troponin T Hi Sens 6Hr Delta 865.3 ng/L (0-12) H* 02/20/24 00:46 Total Protein 6.9 g/dL (6.6-8.7) 02/19/24 20:00 Albumin 4.5 g/dL (3.5-5.2) 02/19/24 20:00 Globulin 2.4 g/dL (1.3-4.6) 02/19/24 20:00 Lipase 17 U/L (13-60) 02/19/24 20:00 Vitals Last Vital Signs Temp 97.8 F 02/22/24 10:58 Pulse 80 02/22/24 10:58 Resp 23 H 02/22/24 10:58 BP 106/60 02/22/24 10:58 Pulse Ox 97 02/22/24 10:58 O2 Del Method Room Air 02/22/24 10:58 O2 Flow Rate 1 02/22/24 07:29 Discharge Plan Discharge Patient Disposition: Home Condition: Stable Prescriptions: New fluticasone propion-salmeterol [Advair Diskus] 500-50 mcg/dose blister with device 1 inh inhalation BID Qty: 60 1RF tiotropium bromide [Spiriva with HandiHaler] 18 mcg capsule, w/inhalation device 1 cap inhalation DAILY 30 Days Qty: 30 0RF Rx Instructions: puncture 1 cap using device; one dose = 2 inhalations levalbuterol tartrate [Xopenex HFA] 45 mcg/actuation HFA aerosol inhaler 1 inh inhalation Q6H PRN (Reason: shortness of breath or wheezing) Qty: 15 0RF amoxicillin-pot clavulanate 875-125 mg Tablet 1 tab PO BID 5 Days Qty: 10 0RF atorvastatin 40 mg Tablet 80 mg PO BEDTIME 90 Days Qty: 180 0RF amiodarone [Pacerone] 200 mg Tablet 400 mg PO DAILY 30 Days Qty: 30 0RF clopidogrel 75 mg Tablet 75 mg PO DAILY 90 Days Qty: 90 3RF aspirin 81 mg Tablet,Delayed Release (Dr/Ec) 81 mg PO DAILY 90 Days Qty: 90 3RF nitroglycerin 0.4 mg Tablet, Sublingual 0.4 mg sublingual Q5M PRN (Reason: Chest Pain) 90 Days Qty: 25 0RF metoprolol succinate 25 mg Tablet Extended Release 24 Hr 12.5 mg PO DAILY 90 Days Qty: 90 0RF No Action No Known Home Medications Discharge Orders: Discharge Order (Routine); Ordered 02/22/24 Ordered By: Tor Juarez Referrals: Donya Muller FNP [Nurse Practitioner] - 03/06/24 2:00 pm Doug Hidalgo MD [Primary Care Provider] - 02/28/24 3:30 pm Discharge Diet: Cardiac Discharge Activity: Increase activity as tolerated Patient Instructions: Amoxicillin (By mouth), Fluticasone (By breathing), Levalbuterol (By breathing) (Xopenex, Xopenex HFA, Xopenex Pediatric), Tiotropium (By breathing) (Spiriva, Spiriva Respimat), Coronary Angioplasty (DC), Opioid Safety, Post Angiogram Home Care Instructions Patient's Health Concerns: Please do not lift more than 20 pounds, patient will be scheduled to see cardiology nurse practitioner in [address] Juarez in 3 months, you will be referred to vascular surgeon for abdominal aortic and iliac aneurysm. Please do not stop aspirin and statin Plavix and rest of medications Discharge Attestations Time Spent in Discharge Care*: greater than 30 min Quality Metrics Clinical Quality Measures [ Acute Myocardial Infaction { Clinical Trial Participant: No; Contraindication to aspirin: None; Aspirin prescribed; Contraindication to statin: None; Statin prescribed; Contraindication to PCI: None; PCI performed;}] Coding Level of Care Code Acute Code for [facility] Diagnoses ST elevation myocardial infarction involving right coronary artery I21.11 Involved coronary artery: right coronary artery History of tobacco abuse Z87.891 Iliac artery aneurysm I72.3 Pulmonary emphysema, unspecified emphysema type J43.9 COPD type: emphysema Emphysema type: unspecified V-tach I47.20 Infrarenal abdominal aortic aneurysm (AAA) without rupture I71.43 Abdominal aorta location: infrarenal aorta Presence of rupture: without rupture LV dysfunction I51.9 Acute bronchitis J20.9 Bronchiectasis J47.9
--- NOTE | 2024-02-22 14:18 | PC.NURSE ---
Patient received extensive education at discharge about the importance of taking plavix and other medications daily. Patient was apprehensive about starting 10 new medications at once so I told him to take them and talk to his PCP when he sees him within the next week. Patient educated on not lifting 50lb bags of salt until he had his appointment with Donya Muller in [facility]. Phone number for floor was written on discharge packet in case patient had any questions. All medications were delivered to bedside by [facility].
--- NOTE | 2024-02-22 14:49 | P.PN_ITS ---
Subjective 2 Subjective: Patient states he feels much better with regards to his breathing since yesterday. His wheezing is nearly resolved. States that he is making less mucus. He feels the nebulizer treatments are working for him. Medications: Reviewed: Yes Vitals/I&O/Wt Last Vital Signs Temp 97.8 F 02/22/24 12:12 Pulse 80 02/22/24 12:12 Resp 23 H 02/22/24 12:12 BP 106/60 02/22/24 12:12 Pulse Ox 97 02/22/24 12:12 O2 Del Method Room Air 02/22/24 10:58 O2 Flow Rate 1 02/22/24 07:29 02/21/24 02/22/24 02/22/24 22:59 06:59 14:59 Intake Total 200 / 826.388 360 / 1186.388 720 / 720 Output Total 1674 / 2024 Balance -1475 / -1198.612 360 / -838.612 720 / 720 Weight last 48 hrs Weight 76.43 kg Weight 76.204 kg Physical Exam 2 Narrative: General: No acute distress, AO x3 HEENT: PERRLA, pupils bilaterally equal and reactive, pallors not present Chest: Improved breath sounds to auscultation bilaterally CVS: S1-S2 regular, no murmurs, no tachycardia, no gallops, no rubs Abdomen: Soft, nontender, no organomegaly, bowel sounds present Neuro: No focal deficits, no facial deformity, AO x3, power 5/5 in all limbs Data 02/21/24 04:58 02/21/24 04:58 A&P Assessment and plan (1) Acute bronchitis: Acute on chronic bronchitis per patient description. Audible wheezing on exam today, made worse in the posttussive phase. He has increased secretions, increased expectoration, expectorating green mucoid sputum. Patient may have underlying COPD, however this has never been formally diagnosed. Trial of albuterol and Breztri inhaler have resulted in significant improvement in the past therefore suspect he may have underlying COPD. Would recommend pulmonary function testing as outpatient for formal diagnosis. For the management of acute bronchitis currently, recommend to start DuoNeb inhalation every 6 hours scheduled, budesonide 0.5 mg twice daily and elation. Discussed with patient the risk of tachycardia, if this does happen will likely switch to Xopenex, ipratropium and budesonide inhalation. Patient is currently in a monitored setting and will be continued on telemetry. Additionally add Flonase nasal spray for constant postnasal drip. Start oral Augmentin 875 mg p.o. twice daily. Check sputum culture and Gram stain. (2) Bronchiectasis: Likely as a result of recurrent bouts of bronchitis. (3) ST elevation (STEMI) myocardial infarction: management per cardiology Qualifiers: Involved coronary artery: right coronary artery Qualified Code(s): I 21.11 - ST elevation (STEMI) myocardial infarction involving right coronary artery (4) V-tach: unrelated to albuterol as he does not appear to have had any treatments yet management per cardiology Plan February 22, 2024. Patient is clinically improved. States that his breathing is much better today. Trial of bronchodilators appears to be helping the patient. This would be consistent with an underlying suspicion for COPD. Recommend discharge with Advair 500/50 inhaler BID, Spiriva 18mcg daily and levalbutrol inhaler prn for rescue. All inhalers ordered and delivered at bedside from pharmacy has meds to beds. Individual inhalers shown to the patient and extensively discussed how to take them. Again discussed the need to take Advair and Spiriva every day and use leave albuterol only for rescue. Additionally recommend discharge with Flonase nasal spray which is [id number] as needed. Augmentin empiric course for 5 days. Sputum culture remains pending at the time of discharge. Clear for discharge from a medicine standpoint. Attestations 2 Medical Necessity Statement*: Per admitting Coding Level of Care Code Acute Code for [facility] Diagnoses Acute bronchitis J20.[address] elevation myocardial infarction involving right coronary artery I21.11 Involved coronary artery: right coronary artery V-tach I47.20
== END 2024-02-22 14:18 | disposition home or self-care (01) | DRG 322 ==
LOC: ER 20:00 → CCL 20:06 → ICU 22:16 → CSU 02-21 20:02
PROVIDERS: Admitting Provider Internal Medicine Cardiovascular Disease; Emergency Provider Emergency Medicine; PCP Family Medicine; Visit Provider Emergency Medicine
PROC: 027034Z Dilation of Coronary Artery, One Artery with Drug-eluting Intraluminal Device, Percutaneous Approach (ICD-10-PCS; principal; 2024-02-19 20:25)
DX: I21.11 ST elevation (STEMI) myocardial infarction involving right coronary artery (principal); I47.20 Ventricular tachycardia, unspecified; J47.0 Bronchiectasis with acute lower respiratory infection; I25.10 Atherosclerotic heart disease of native coronary artery without angina pectoris; J20.9 Acute bronchitis, unspecified; J43.9 Emphysema, unspecified; Z72.0 Tobacco use; Z85.828 Personal history of other malignant neoplasm of skin; I72.3 Aneurysm of iliac artery; I71.40 Abdominal aortic aneurysm, without rupture, unspecified; I51.9 Heart disease, unspecified; I25.82 Chronic total occlusion of coronary artery
CPT/HCPCS: 36415; 71045; 71275; 75635; 80048; 80053; 83690; 84484; 85025; 85347; 85610; 85730; 93005; 93306; 93458; 94640; 96365; 96374; 96375; 96376; 99152; 99153; 99285; A4222; C1725; C1769; C1874; C1887; C1894; C9600; J0171; J0283; J0461; J1644; J2250; J2270; J2405; J3010; J3490; J7030; J7626; Q9967

== ENCOUNTER → 2024-03-06 14:28 | Outpatient (BNVA) | payer MEDICARE, OTHER, SELFPAY | PROVIDERS: PCP Family Medicine; Visit Provider Nurse Practitioner Family | DX: I47.20 Ventricular tachycardia, unspecified (principal); R07.9 Chest pain, unspecified; Z87.891 Personal history of nicotine dependence; I71.40 Abdominal aortic aneurysm, without rupture, unspecified; I25.10 Atherosclerotic heart disease of native coronary artery without angina pectoris; R94.31 Abnormal electrocardiogram [ECG] [EKG] | CPT/HCPCS: 93005; 99214 ==

== ENCOUNTER 2024-04-20 16:59 | Outpatient (CLI) | payer MEDICARE, OTHER, SELFPAY ==
--- NOTE | 2024-04-20 17:09 | CT_ITS ---
WS: [id number] CT ANGIOGRAPHY abdomen pelvis HISTORY: ANEURYSM OF ILIAC ARTERY TECHNIQUE: CT angiogram is performed during IV injection. Reformation images reviewed. All CT scans a [employer] use at least one of these dose optimization techniques: automated exposure contro l; mA and/or kV adjustment per patient size (includes targeted exams where dose is matched to clinica l indication); or iterative reconstruction. CONTRAST: Omnipaque 350; 100 mL IV. DLP: 473.25 mGy.cm COMPARISON: 02/21/2024 Lung bases are clear. Mild cardiomegaly. Tricuspid regurgitation into the hepatic veins. Small hiatal hernia. Abdominal aorta: Marked atherosclerotic disease in the abdominal aorta. There is marked tortuosity an d S shaped curvature of the aorta. Abdominal aortic aneurysm extends over a length of 6.0 cm to the b ifurcation. Maximum transverse diameter of 5.2 x 4.6 cm. There is asymmetric thrombus extending great er than 50% around the patent lumen. Aneurysm extends to the bifurcation and continues into the RIGHT common iliac artery. RIGHT iliac artery aneurysm measures 2.8 x 3.2 cm. Not significantly changed si nce the prior study. Calcified plaque continues distally into the internal and external iliac arterie s. LEFT common iliac artery is atherosclerotic with no aneurysm. Small amount of plaque at the origin of the celiac axis. Normal SMA. Only single renal arteries are i dentified with mild plaque. Kidneys are enhancing symmetrically. RORO is patent. Liver and spleen and gallbladder are unremarkable. Pancreatic duct is slightly dilated to 3 mm. No ab normality is noted at the pancreatic head or neck. No mass identified. Stomach is moderately distende d. No small bowel obstruction. Marked constipation. Moderate to severe distal colonic diverticulosis without acute diverticulitis. Normal appendix. No ascites or adenopathy. Well distended urinary bladder. No enhancing uroepithelial lesions. Prostate gland is enlarged encroa soto into the bladder. Bilateral patent inguinal canals contain fat only. CT/CT angio abdomen pelvis [id number] IMPRESSION: 1. RIGHT common iliac artery aneurysm stable measuring 3.2 x 2.8 cm. 2. Large infrarenal abdominal aortic aneurysm extends over a length of 6.0 cm. Maximum diameter of 5.2 cm without progression since the prior study. 3. Kidneys are normally enhancing. 4. Extensive distal colonic diverticulosis without acute diverticulitis.
[2024-04-20 17:43] LABS: Blood Urea Nitrogen 14 mg/dL (8-23)
[2024-04-20] MEDS: iohexol 350 mg/mL 500 mL Btl (per mL) IV (17:59)
== END 2024-04-20 17:00 | disposition home or self-care (01) ==
LOC: RAD 17:05
PROVIDERS: Student in an Organized Health Care Education/Training Program; PCP Family Medicine; Visit Provider Family Medicine
DX: I72.3 Aneurysm of iliac artery (principal); I71.43 Infrarenal abdominal aortic aneurysm, without rupture; K57.90 Diverticulosis of intestine, part unspecified, without perforation or abscess without bleeding
CPT/HCPCS: 74174; 82565; 84520

== ENCOUNTER → 2024-05-09 16:05 | Outpatient (BNVA) | payer MEDICARE, OTHER, SELFPAY | PROVIDERS: PCP Family Medicine; Visit Provider Internal Medicine Cardiovascular Disease | DX: I71.43 Infrarenal abdominal aortic aneurysm, without rupture (principal); I72.3 Aneurysm of iliac artery; R07.9 Chest pain, unspecified; R06.02 Shortness of breath; I51.9 Heart disease, unspecified; J44.89 Other specified chronic obstructive pulmonary disease; M54.2 Cervicalgia; I25.2 Old myocardial infarction | CPT/HCPCS: 99214 ==

== ENCOUNTER 2024-05-18 09:22 | Outpatient (CLI) | payer MEDICARE, OTHER, SELFPAY ==
--- NOTE | 2024-05-18 | ECG_ITS ---
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 The perfusion scan will be documented separately. DATA: Baseline heart rate was 51 beats per minute. Baseline blood pressure was 106/81 millimeters of mercury. Target heart rate was 148. Maximum heart rate achieved was 86. which was 58% of the predicted target heart rate. Maximum blood pressure was 132/84 millimeters of mercury. The reason for ending the test was completion of the protocol. The patient did not experience any symptoms. ELECTROCARDIOGRAM: BASELINE: Sinus bradycardia. Normal axis. Frequent PVCs, old anterior wall myocardial infarction otherwise, no ST-T changes suggestive of ischemia noted. After Lexiscan injection, no ST-T changes suggestive of ischemic noted. No arrhythmia or PVCs noted. CONCLUSION: Please note due to baseline abnormality of the EKG specificity and sensitivity of the EKG portion of LexiScan MIBI stress test will be low 1. EKG not suggestive of ischemia 2. Lexiscan injection unremarkable. 3. Perfusion scan will be documented separately. Electronically Signed On 06-03-2024 20:26:17 VINE[employer]ARD SUPERVISOR by TOR JUAREZ [email or web address]
--- NOTE | 2024-05-18 09:26 | NMCV_ITS ---
NM willow perf SPECT r/s* [id number] Saqib Mace Age: 74 Gender: M : 1950 Exam Date: 05/18/2024 09:26 Ordering Phys: Tor Juarez MD ([email or web address]) Technologist: VERONICA Tarango Exam Location: [facility] Indications: CP STRESS TEST Please see separate stress test report in [facility] for full findings IMAGE PROTOCOL Rest/Stress 1 Lexiscan Day Radiopharmaceutical Dose (mCi) Administration Site Administered by Rest: Tc-99m 10.5 IV Estella Luna, FWS FACULTY ASSISTANT Sestamibi Stress:Tc-99m 32.4 IV Estella Luna, FWS FACULTY ASSISTANT Sestamibi Rest: 18-May-2024 60 Discovery 630 Stress: 18-May-2024 30 Discovery 630 0.4mg Lexiscan. Images obtained in supine and prone position. SPECT RESULTS Technical Quality: Good Raw Data Analysis: Subdiaphragmatic activity Image Corrections: No attenuation or motion correction applied Summed Stress Score: 17 Summed Rest Score: 17 Summed Difference Score: 1 PERFUSION FINDINGS Large area of fixed perfusion defect noted in the basal to distal inferior and inferolateral wall suggestive of old myocardial infarction versus scarring without significant miriam-infarct FUNCTIONAL RESULTS (calculated via Gated SPECT) Stress Image LV EF (%): 63 Stress EDV (mL):167 TID: 0.88 Stress ESV (mL):61 FUNCTIONAL FINDINGS: Inferior wall akinesis IMPRESSIONS Large area of old myocardial infarction versus scarring noted in basal distal inferior and inferolateral wall without significant miriam-infarct ischemia. This study is negative for ischemia. Tor Juarez MD (Electronically Signed) Final Date: 18 May 2024 12:39 S
[2024-05-18 09:59] VITALS: BMI 23.0
[2024-05-18] MEDS: regadenoson 0.4 Mg/5 ml Syringe IVP (10:58)
[2024-05-18 11:17] VITALS: BP 120/79; PULSE 70
== END 2024-05-18 09:23 | disposition home or self-care (01) ==
PROVIDERS: PCP Electrodiagnostic Medicine; Visit Provider Internal Medicine Cardiovascular Disease
DX: R07.9 Chest pain, unspecified (principal); R06.02 Shortness of breath; R93.89 Abnormal findings on diagnostic imaging of other specified body structures
CPT/HCPCS: 36415; 78452; 93017; 96374; A9500; J2785

== ENCOUNTER 2024-07-04 08:29 | Outpatient (CLI) | payer MEDICARE, OTHER, SELFPAY ==
--- NOTE | 2024-07-04 08:31 | CT_ITS ---
WS: [id number] CTA ABDOMEN TECHNIQUE: Noncontrast plus contrast enhanced CTA of the abdominal aorta with coronal and sagittal reformatted images and additional MIP Images. CLINICAL INFORMATION: ANEURYSM OF ILLAC ARTERY COMPARISON: Pelvis DLP: 1267.[address] scans at [facility] use at least one of these dose optimization techniques: automated exposure control; mA and/or kV adjustment per patient size (includes targeted exams where dose is matched to clinical indication); or iterative reconstruction. FINDINGS: Postoperative changes aortic endograft repair with biiliac extension is new compared to previous. Excluded aneurysm sac measures 4.8 x 5.1 cm AP by transverse unchanged. 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 Recommend vascular surgery consultation. Lung bases are well aerated. Slight bibasilar atelectasis. Hepatic steatosis. Small esophageal hiatal hernia. Celiac and SMA are patent. Proximal renal arteries are patent. Excluded RIGHT iliac aneurysm. Prostate enlargement measuring 4.3 cm. Recommend correlation PSA. Evidence of mild bladder outlet obstruction. Extensive sigmoid diverticulosis. Fat- containing RIGHT inguinal hernia. CT/CT angio abdomen pelvis [id number] IMPRESSION: 1. Interval postoperative aortic endograft repair with biiliac extension. RIGH T iliac stents extend into the external and internal iliac arteries. 2. Stable excluded aneurysm sac. 3. 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 Recommend vascular surgery follow-up 4. No other acute findings
[2024-07-04 09:20] LABS: Blood Urea Nitrogen 13 mg/dL (8-23)
[2024-07-04] MEDS: iohexol 350 mg/mL 500 mL Btl (per mL) IV (09:39)
== END 2024-07-04 08:30 | disposition home or self-care (01) ==
PROVIDERS: Radiology Neuroradiology; PCP Electrodiagnostic Medicine; Visit Provider Student in an Organized Health Care Education/Training Program
DX: I72.3 Aneurysm of iliac artery (principal); Z98.890 Other specified postprocedural states; R93.89 Abnormal findings on diagnostic imaging of other specified body structures; K76.0 Fatty (change of) liver, not elsewhere classified; K44.9 Diaphragmatic hernia without obstruction or gangrene; N40.0 Benign prostatic hyperplasia without lower urinary tract symptoms; N13.8 Other obstructive and reflux uropathy; K57.30 Diverticulosis of large intestine without perforation or abscess without bleeding; K40.90 Unilateral inguinal hernia, without obstruction or gangrene, not specified as recurrent
CPT/HCPCS: 74174; 82565; 84520

== ENCOUNTER 2024-11-06 10:09 | Outpatient (CLI) | payer OTHER, MEDICARE, SELFPAY ==
--- NOTE | 2024-11-06 10:17 | MR_ITS ---
WS: [id number] MRI BRAIN WITH AND WITHOUT CONTRAST HISTORY: FREQUENT HEADACHES COMPARISON: None available. TECHNIQUE: Multiplanar imaging performed through the brain with MultiHance 16 ml's IV. No acute infarcts are seen. Enriquez-white matter differentiation is well preserved. Mild cerebral atrophy and small vessel disease. Small lacunar infarct RIGHT basal ganglia. No hippocampal atrophy. No hemorrhage. Ventricles and extra-axial spaces are normal. Clivus and pituitary gland are normal. Visualized posterior fossa and brainstem are also normal. Postcontrast images are negative for masses or vascular malformations. Dominant distal LEFT vertebral artery. Small caliber but patent RIGHT vertebral artery. Dural venous sinuses are normal. Paranasal sinuses: Well aerated with no significant disease. Mastoid air cells: Normal. Calvarium and scalp: Normal. MR/MR head wo/w con [id number] IMPRESSION: 1. No acute hemorrhage or infarct. 2. Mild atrophy and small vessel disease. 3. No enhancing masses or vascular malformations.
[2024-11-06] MEDS: gadobenate dimeglumine 20 mL vial 16 ML IV (11:03)
== END 2024-11-06 10:10 | disposition home or self-care (01) ==
LOC: RAD 10:10
PROVIDERS: PCP Electrodiagnostic Medicine; Visit Provider Electrodiagnostic Medicine
DX: I67.89 Other cerebrovascular disease (principal); R51.9 Headache, unspecified
CPT/HCPCS: 70553; A9577

== ENCOUNTER 2024-11-09 14:27 | Outpatient (CLI) | payer MEDICARE, OTHER, SELFPAY ==
--- NOTE | 2024-11-09 14:32 | CTR_ITS ---
PROCEDURE INFORMATION: Exam: CT Abdomen And Pelvis Without And With Contrast Exam date and time: 11/09/2024 3:19 PM Age: 74 years old Clinical indication: Acute; Prior surgery; Surgery date: 6+ months; Surgery type: Aaa with iliac stents, hernia x 2; Weight gain, constipation to diarrhea, lower abdominal pain and bilateral groin pain; Additional info: Partial small bowel obstruction TECHNIQUE: Imaging protocol: Computed tomography of the abdomen and pelvis without and with contrast. Radiation optimization: All CT scans at this facility use at least one of these dose optimization techniques: automated exposure control; mA and/or kV adjustment per patient size (includes targeted exams where dose is matched to clinical indication); or iterative reconstruction. Contrast material: OMNIPAQUE 350; Contrast volume: 100 ml; Contrast route: INTRAVENOUS (IV); COMPARISON: CT angio abdomen pelvis [id number] 07/04/2024 9:19 AM RADIATION DOSE METRICS: Total DLP (mGy-cm): 712.07 FINDINGS: Diaphragm: Small hiatal hernia. Liver: Normal. No mass. Gallbladder and biliary ducts: Normal. No calcified stones. No ductal dilation. Pancreas: Similar diffuse prominence of the pancreatic duct. Spleen: Normal. No splenomegaly. Adrenal glands: Normal. No mass. Kidneys and ureters: Renal cysts. No hydronephrosis. Stomach and bowel: Colonic diverticulosis. No bowel obstruction. Appendix: No evidence of appendicitis. Intraperitoneal space: Unremarkable. No free air. No significant fluid collection. 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 Similar hyperdensities within the aneurysmal sac related to known type 2 endoleaks. Lymph nodes: Unremarkable. No enlarged lymph nodes. Urinary bladder: Unremarkable as visualized. Reproductive: Mild prostatomegaly. Bones/joints: Unremarkable. No acute fracture. Soft tissues: Unremarkable. CT/CT abdomen pelvis wo/w [id number] IMPRESSION: 1. No definite acute intra-abdominal or intrapelvic process. 2. 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 3. Colonic diverticulosis. No bowel obstruction. COMMENTS: Consistent with the [employer]'s Incidental Findings Committee white paper (J Am Conrado Radiol 2018): Any incidental renal lesion less than 1 cm or classified as too small to characterize, or any incidental cystic renal lesion characterized as simple-appearing, is likely benign. No follow-up imaging is recommended for these lesions per consensus recommendations based on imaging criteria.
[2024-11-09] MEDS: iohexol 350 mg/mL 500 mL Btl (per mL) IV (15:26)
[2024-11-09] MEDS: iohexol 350 mg/mL 500 mL Btl (per mL) PO (15:26)
== END 2024-11-09 14:28 | disposition home or self-care (01) ==
LOC: RAD 14:27
PROVIDERS: PCP Electrodiagnostic Medicine; Visit Provider Electrodiagnostic Medicine
DX: K56.600 Partial intestinal obstruction, unspecified as to cause (principal); R93.89 Abnormal findings on diagnostic imaging of other specified body structures; K57.30 Diverticulosis of large intestine without perforation or abscess without bleeding; K44.9 Diaphragmatic hernia without obstruction or gangrene; N28.1 Cyst of kidney, acquired; N40.0 Benign prostatic hyperplasia without lower urinary tract symptoms
CPT/HCPCS: 74178

== ENCOUNTER → 2024-11-14 15:08 | Outpatient (BNVA) | payer MEDICARE, OTHER, SELFPAY | PROVIDERS: PCP Electrodiagnostic Medicine; Visit Provider Internal Medicine Cardiovascular Disease | DX: I25.2 Old myocardial infarction (principal); I71.9 Aortic aneurysm of unspecified site, without rupture; R93.1 Abnormal findings on diagnostic imaging of heart and coronary circulation; K57.90 Diverticulosis of intestine, part unspecified, without perforation or abscess without bleeding; Z87.891 Personal history of nicotine dependence | CPT/HCPCS: 99214 ==

== ENCOUNTER → 2024-11-17 10:07 | Outpatient (BNVA) | payer MEDICARE, OTHER, SELFPAY | PROVIDERS: PCP Electrodiagnostic Medicine; Visit Provider Dermatology | DX: L81.4 Other melanin hyperpigmentation (principal); I78.8 Other diseases of capillaries; D69.2 Other nonthrombocytopenic purpura; L57.8 Other skin changes due to chronic exposure to nonionizing radiation; D48.5 Neoplasm of uncertain behavior of skin | CPT/HCPCS: 11102; 99213 ==

== ENCOUNTER → 2024-12-14 09:58 | Outpatient (BNVA) | payer MEDICARE, OTHER, SELFPAY | PROVIDERS: PCP Electrodiagnostic Medicine; Referring Provider Electrodiagnostic Medicine; Visit Provider Student in an Organized Health Care Education/Training Program | DX: K56.0 Paralytic ileus (principal); K92.89 Other specified diseases of the digestive system | CPT/HCPCS: 99203 ==

== ENCOUNTER → 2024-12-28 11:26 | Outpatient (BNVA) | payer MEDICARE, OTHER, SELFPAY | PROVIDERS: PCP Electrodiagnostic Medicine; Visit Provider Student in an Organized Health Care Education/Training Program | DX: K64.9 Unspecified hemorrhoids (principal) | CPT/HCPCS: 99213 ==